=== PATIENT | female | born 1960 | race Two or more races ===

== ENCOUNTER 2020-04-15 09:10 | Outpatient (REF) | payer OTHER, SELFPAY ==
[2020-04-15 16:01] LABS: CT PCR NOT DETECTED (Not Detect.); NG PCR NOT DETECTED (Not Detect.)
[2020-04-16 12:18] LABS: BV Int Neg Control Negative (Negative); BV Int Pos Control Positive (Positive)
[2020-04-19 04:22] LABS: HPV 16 RNA NOT DETECTED (NOT DETECTED); HPV mRNA E6/E7 Detected (Not Detected)
== END 2020-04-15 09:11 | disposition home or self-care (01) ==
LOC: HO.LNP 09:10
PROVIDERS: PCP Physician Assistant; Referring Provider Physician Assistant; Visit Provider Advanced Practice Midwife
DX: Z01.419 Encounter for gynecological examination (general) (routine) without abnormal findings (principal); Z20.2 Contact with and (suspected) exposure to infections with a predominantly sexual mode of transmission; N64.52 Nipple discharge
CPT/HCPCS: 87480; 87491; 87510; 87591; 87624; 87625; 87660; 88141; 88142

== ENCOUNTER 2020-04-17 08:32 | Outpatient (REF) | payer OTHER, SELFPAY ==
[2020-04-18 08:41] LABS: HBsAGNum1 0.22 S/CO (0.00-0.99); HIV AB/AG Nonreactive (Nonreactive); HIV Num 1 0.05 S/CO (0.00-0.99); Hepatitis B Surface Antigen Negative (Negative)
[2020-04-18 09:01] LABS: ~HepC Num1 0.06 S/CO (0.00-0.79); ~Hepatitis C Antibody Nonreactive (Nonreactive)
[2020-04-18 09:39] LABS: Syphilis Screen Nonreactive (Nonreactive)
== END 2020-04-17 08:33 | disposition home or self-care (01) ==
LOC: HO.LAB 08:32
PROVIDERS: PCP Physician Assistant; Visit Provider Advanced Practice Midwife
DX: Z20.2 Contact with and (suspected) exposure to infections with a predominantly sexual mode of transmission (principal)
CPT/HCPCS: 86780; 86803; 87340; 87389

== ENCOUNTER → 2020-04-29 10:52 | Outpatient (BNVA) | payer OTHER, SELFPAY | PROVIDERS: PCP Internal Medicine; Referring Provider Internal Medicine; Visit Provider Advanced Practice Midwife | DX: Z76.89 Persons encountering health services in other specified circumstances (principal) ==

== ENCOUNTER 2020-05-23 08:06 | Outpatient (REF) | payer OTHER, SELFPAY ==
--- NOTE | 2020-05-23 08:10 | MM_ITS ---
EXAMINATION: MM SCREENING DIGITAL BREAST TOMOSYNTHESIS, BILATERAL CLINICAL INFORMATION: Screening. Asymptomatic. The lifetime risk of breast cancer based on the Tyrer-Cuzick Model is 5%. COMPARISON: Mammography: 06/16/2018, 05/05/2017 02/25/2017, 02/27/2016 TECHNIQUE: Digital breast tomosynthesis is performed in both the craniocaudal and mediolateral oblique views along with computer-aided detection (CAD). Synthesized 2D images are generated from the tomosynthesis. Additional right MLO view is provided. FINDINGS: There are scattered areas of fibroglandular density (ACR BI-RADS breast composition Category b). There are no significant masses, abnormal calcifications, or other abnormalities. There are 2 intramammary nodes posterior upper outer left breast again seen. Right breast again has dermal lesion overlying the posterior medial breast. There is a stable asymmetric density mid outer right breast on similar to prior studies. No developing density. MM/MM tomosynthesis screening BI IMPRESSION: No significant changes from prior studies. ASSESSMENT: BI-RADS 2: Benign RECOMMENDATION: Routine annual mammography screening. This patient's information was entered into a reminder system with a target due date for their next mammogram.
== END 2020-05-23 08:07 | disposition home or self-care (01) ==
LOC: HO.MAMMO 08:06
PROVIDERS: PCP Physician Assistant; Visit Provider Advanced Practice Midwife
DX: Z12.31 Encounter for screening mammogram for malignant neoplasm of breast (principal)
CPT/HCPCS: 77063; 77067

== ENCOUNTER 2020-09-26 06:59 | Day surgery (SDC) | payer OTHER, SELFPAY ==
[2020-09-22 13:33] VITALS: BMI 33.9
--- NOTE | 2020-09-25 09:50 | HO.ANESPROP2 ---
Documented by User: Mere Richard 09/25/20 10:03 HPI - Anesthesia Eval Consult details Narrative: 60yo F for Colonoscopy PMFSH Active Problems Active Problems: All Active Problems (Updated 06/23/20 @ 14:34 by Ernesto Monreal PA-C) Well woman exam with routine gynecological exam (Acute) Potential exposure to STD (Acute) Nipple discharge in female (Acute) HPV test positive (Acute) HTN (hypertension) (Acute) HLD (hyperlipidemia) (Acute) Past Medical History Medical History History of atrial fibrillation History of fibromyalgia Hx of essential hypertension Hx of hyperlipidemia Hx of obesity Hx of sleep apnea Family History Family History Father Hx of lymphoma Mother Diabetes mellitus HTN (hypertension) Osteoporosis High cholesterol Brother Stroke Diabetes mellitus Heart valve problem Surgical History Surgical History H/O colonoscopy History of endometrial ablation Hx of cholecystectomy Hx of eye surgery Hx of knee surgery Hx of tubal ligation Social History Social History Are you a primary hemodialysis patient care specialist to a significant other at home: Yes (MOM) Do you presently have visiting nurse or other home services: No Alcohol intake: never Smoking Status: Never smoker Second Hand Smoke Exposure: No Use of substances other than those prescribed or required for medical reasons: Yes Have you been hit, kicked, punched, or otherwise hurt by someone within the past year? If so, by whom?: No Advance Directives: No Advance Directives Information Provided: Yes Recently lost weight without trying: No Meds Allergies Allergy/AdvReac Type Severity Reaction Status Date / Time No Known Allergies Allergy Verified 06/23/20 14:25 [No Known Allergies*] Home Medications Medication Instructions Recorded Confirmed Last Taken Type multivitamin 1 tab PO DAILY 09/22/20 09/22/20 Unknown History omega-3 fatty acids-vitamin E 1 cap PO DAILY 09/22/20 09/22/20 Unknown History [Fish Oil] aspirin [Aspir-81] 81 mg PO DAILY 09/25/20 09/25/20 Unknown History Exam Exam Date and Time: September 25, 2020 0950 Height,Weight and Vital Signs: Height 4 ft 11 in Weight 76.204 kg Narrative Narrative: EKG 2019: NSR @ 65 Assessment and Plan Assessment Anesthesia Assessment: Chart Reviewed Documented by User: Mame Bales 09/26/20 07:59 PMFSH Past Medical History Medical History History of atrial fibrillation History of fibromyalgia Hx of essential hypertension Hx of hyperlipidemia Hx of obesity Hx of sleep apnea Family History Family History Father Hx of lymphoma Mother Diabetes mellitus HTN (hypertension) Osteoporosis High cholesterol Brother Stroke Diabetes mellitus Heart valve problem Surgical History Surgical History H/O colonoscopy History of endometrial ablation Hx of cholecystectomy Hx of eye surgery Hx of knee surgery Hx of tubal ligation Social History Social History Are you a primary hemodialysis patient care specialist to a significant other at home: Yes (MOM) Do you presently have visiting nurse or other home services: No Alcohol intake: never Smoking Status: Never smoker Second Hand Smoke Exposure: No Use of substances other than those prescribed or required for medical reasons: Yes Have you been hit, kicked, punched, or otherwise hurt by someone within the past year? If so, by whom?: No Advance Directives: No Advance Directives Information Provided: Yes Recently lost weight without trying: No Meds Allergies Allergy/AdvReac Type Severity Reaction Status Date / Time No Known Allergies Allergy Verified 06/23/20 14:25 [No Known Allergies*] Home Medications Medication Instructions Recorded Confirmed Last Taken Type multivitamin 1 tab PO DAILY 09/22/20 09/22/20 Unknown History omega-3 fatty acids-vitamin E 1 cap PO DAILY 09/22/20 09/22/20 Unknown History [Fish Oil] aspirin [Aspir-81] 81 mg PO DAILY 09/25/20 09/25/20 Unknown History Exam Airway Mallampati Class: III TM Dist: >3cm Neck ROM: Full Loose/Missing/Broken Teeth: No Heart: RRR Lungs: CTA Assessment and Plan Assessment Anesthesia Assessment: Anesthesia Plan Discussed and Chart Reviewed Final Anesthetic Review NPO: Yes ASA Class: III Final Preanesthetic Review: Meds/Allgs Chart Reviewed, Consent Obtained/Reviewed and Anes Risks/Benef Reviewed Patient Risk: Intermediate Procedure Risk: Low Anesthetic Plan Anesthetic Plan: MAC: Disposition: Standard PACU
[2020-09-26 07:19] VITALS: BP 130/72; PULSE 75; RESP 18; TEMP 36.3; O2SAT 99
[2020-09-26] MEDS: Lactated Ringers 1,000 ML 50 ML IV (08:17)
--- NOTE | 2020-09-26 08:19 | MHC.SHP ---
Pre-Procedural Eval Section A The patient is an INPATIENT: No Changes since office visit: No Cold of Flu in the past 2 weeks, No New Medical Problems, No Changes in Medication and No Patient answered all questions The History & Physical has been completed within 30 days and I have reviewed it.: Yes Section B Chief Complaint: screening Allergies: Allergies Allergy/AdvReac Type Severity Reaction Status Date / Time No Known Allergies Allergy Verified 06/23/20 14:25 [No Known Allergies*] Plan I have reviewed the history and physical and performed a pertinent physical examination on my patient. No changes have occurred unless specified.
[2020-09-26 08:43] VITALS: BP 116/65; PULSE 76; RESP 20; TEMP 36.8; O2SAT 97
[2020-09-26 08:57] VITALS: BP 129/69; PULSE 62; RESP 18; TEMP 36.8; O2SAT 97
--- NOTE | 2020-09-26 09:01 | PM.OP ---
Brief Operative Note Date of Service: 09/26/20 Surgeon: Reggie Torres Estimated blood loss (mL): 0
--- NOTE | 2020-09-26 09:50 | OP_ITS ---
SURGEON: Reggie Torres MD INDICATIONS: Colon cancer screening. PREOPERATIVE DIAGNOSIS: POSTOPERATIVE DIAGNOSIS: PROCEDURE PERFORMED: Colonoscopy to the terminal ileum. ESTIMATED BLOOD LOSS: COMPLICATIONS: ANESTHESIA: ASSISTANTS: SPECIMENS: MEDICATIONS: Monitored anesthesia care. DESCRIPTION OF PROCEDURE: History and physical performed. The risks and benefits of the procedure were explained to the patient. Informed consent was obtained. The patient was placed in the left lateral decubitus position. A digital rectal exam was performed and was found to be normal. The Olympus pediatric video colonoscope was introduced into the rectum and advanced to the cecum without difficulty. The cecum was identified by transillumination, palpation, and identification of ileocecal valve. Examination was performed and the scope was removed. She tolerated the procedure well and was taken to recovery area in stable condition. FINDINGS: The terminal ileum was normal. The visualized colonic mucosa was normal. The quality of the prep was good. No polyps were identified. There was a single diverticulum identified in the cecum. Retroflexed examination showed small internal hemorrhoids. IMPRESSION: Normal colonoscopy. RECOMMENDATIONS: 1. Follow up as needed. 2. Repeat colonoscopy is recommended in 10 years for average risk individuals. MD JENNI Desir/ARGELIA / [id number]
== END 2020-09-26 09:36 | disposition home or self-care (01) ==
PROVIDERS: PCP Physician Assistant; Visit Provider Internal Medicine Gastroenterology
PROC: 0DJD8ZZ Inspection of Lower Intestinal Tract, Via Natural or Artificial Opening Endoscopic (ICD-10-PCS; CPT 45378; principal; 2020-09-26 08:10)
DX: Z12.11 Encounter for screening for malignant neoplasm of colon (principal); Z83.71 Family history of colonic polyps; K57.30 Diverticulosis of large intestine without perforation or abscess without bleeding; K64.8 Other hemorrhoids; I48.91 Unspecified atrial fibrillation; I10 Essential (primary) hypertension; Z79.82 Long term (current) use of aspirin; Z79.899 Other long term (current) drug therapy; Z90.49 Acquired absence of other specified parts of digestive tract
CPT/HCPCS: 45378

== ENCOUNTER 2020-11-15 08:00 | Outpatient (REF) | payer OTHER, SELFPAY ==
[2020-11-15 08:37] LABS: Estimated Average Glucose 126 mg/dL
[2020-11-15 08:53] LABS: Alanine Aminotransferase 26 U/L (0-31); Albumin Level 4.4 g/dL (3.5-5.0); Alkaline Phosphatase 135 U/L (39-117); Anion Gap 13 (12-20); Aspartate Amino Transferase 14 U/L (5-31); Bilirubin Total 0.3 mg/dL (0.0-1.0); Blood Urea Nitrogen 13 mg/dL (9-16); Calcium 9.1 mg/dL (8.4-10.2); Carbon Dioxide 27 mmol/L (22-29); Chloride 106 mmol/L (96-108); Cholesterol 211 mg/dL; Estimated Glomerular Filt Rate > 60; Glucose Fasting 107 mg/dL (60-99); HDL Cholesterol 42 mg/dL; LDL Cholesterol Calculated 149 mg/dl; Potassium 4.6 mmol/L (3.3-5.1); Sodium 141 mmol/L (135-145); Total Protein 7.1 g/dL (6.5-8.0); Triglycerides 100 mg/dL
[2020-11-15 09:00] LABS: Creatinine Urine 118.39 mg/dL; Microalbum/Creatinine Ratio Ur 7.6 ug/mg cr
[2020-11-15 09:06] LABS: Hematocrit 38.1 % (37-47); Hemoglobin 12.2 g/dl (12.0-16.0); Mean Corpuscular Hemoglobin 30.3 pg (27.0-33.0); Mean Corpuscular Volume 94.5 fL (80-98); Mean Platelet Volume 11.3 fL (9.4-12.3); Platelet Count 235 X10*3/uL (160-400); Red Blood Count 4.03 X10*6/uL (4.20-5.50); Red Cell Distribution Width 13.2 % (11.0-16.0); White Blood Count 7.3 X10*3/uL (4.8-10.8)
[2020-11-15 09:14] LABS: TSH reflex Free T4 0.83 uIU/mL (0.32-4.0)
== END 2020-11-15 08:01 | disposition home or self-care (01) ==
LOC: HO.LAB 08:00
PROVIDERS: PCP Physician Assistant; Visit Provider Physician Assistant
DX: I10 Essential (primary) hypertension (principal); E78.2 Mixed hyperlipidemia
CPT/HCPCS: 36415; 80053; 80061; 82043; 83036; 84443; 85027

== ENCOUNTER 2021-05-19 07:39 | Outpatient (REF) | payer OTHER, SELFPAY ==
[2021-05-19 08:13] LABS: Hemoglobin 12.9 g/dl (12.0-16.0); Mean Corpuscular HGB Conc 33.1 g/dl (31.0-35.0); Mean Corpuscular Hemoglobin 30.3 pg (27.0-33.0); Mean Corpuscular Volume 91.5 fL (80.0-98.0); Mean Platelet Volume 11.4 fL (9.4-12.3); Platelet Count 227 X10*3/uL (160-400); Red Blood Count 4.26 X10*6/uL (4.20-5.50); Red Cell Distribution Width 13.2 % (11.0-16.0); White Blood Count 7.2 X10*3/uL (4.8-10.8)
[2021-05-19 08:22] LABS: Estimated Average Glucose 128 mg/dL; Hemoglobin A1c % 6.1 %
[2021-05-19 09:05] LABS: Alanine Aminotransferase 17 U/L (0-31); Albumin Level 4.3 g/dL (3.5-5.0); Alkaline Phosphatase 123 U/L (39-117); Anion Gap 14 (12-20); Aspartate Amino Transferase 12 U/L (5-31); Bilirubin Total 0.2 mg/dL (0.0-1.0); Blood Urea Nitrogen 13 mg/dL (9-16); Calcium 9.2 mg/dL (8.4-10.2); Carbon Dioxide 25 mmol/L (22-29); Chloride 107 mmol/L (96-108); Cholesterol 217 mg/dL; Estimated Glomerular Filt Rate > 60; Glucose Fasting 114 mg/dL (60-99); HDL Cholesterol 42 mg/dL; LDL Cholesterol Calculated 151 mg/dl; Potassium 4.6 mmol/L (3.3-5.1); Sodium 141 mmol/L (135-145); Total Protein 7.1 g/dL (6.5-8.0); Triglycerides 122 mg/dL
[2021-05-19 09:27] LABS: TSH reflex Free T4 1.51 uIU/mL (0.32-4.0)
== END 2021-05-19 07:40 | disposition home or self-care (01) ==
LOC: HO.LAB 07:39
PROVIDERS: PCP Physician Assistant; Visit Provider Physician Assistant
DX: I10 Essential (primary) hypertension (principal); R73.09 Other abnormal glucose; E78.2 Mixed hyperlipidemia
CPT/HCPCS: 36415; 80053; 80061; 83036; 84443; 85027

== ENCOUNTER 2021-06-02 10:57 | Outpatient (REF) | payer OTHER, SELFPAY ==
--- NOTE | ~2021-06-02 | MM_ITS ---
EXAMINATION: MM SCREENING DIGITAL BREAST TOMOSYNTHESIS, BILATERAL CLINICAL INFORMATION: Screening. Asymptomatic. The lifetime risk of breast cancer based on the Tyrer-Cuzick Model is 4.4%. COMPARISON: Mammography: May 23, 2020 and studies dating back to January 24, 2013 TECHNIQUE: Digital breast tomosynthesis is performed in both the craniocaudal and mediolateral oblique views along with computer-aided detection (CAD). Synthesized 2D images are generated from the tomosynthesis. Additional left exaggerated craniocaudal view performed. FINDINGS: There are scattered areas of fibroglandular density (ACR BI-RADS breast composition Category b). There are no significant masses, abnormal calcifications, or other abnormalities. MM/MM tomosynthesis screening BI IMPRESSION: There are no significant changes from prior study. ASSESSMENT: BI-RADS 1: Negative RECOMMENDATION: Routine annual mammography screening. This patient's information was entered into a reminder system with a target due date for their next mammogram.
== END 2021-06-02 10:58 | disposition home or self-care (01) ==
LOC: HO.MAMMO 10:57
PROVIDERS: PCP Physician Assistant; Visit Provider Physician Assistant
DX: Z12.31 Encounter for screening mammogram for malignant neoplasm of breast (principal)
CPT/HCPCS: 77063; 77067

== ENCOUNTER 2021-06-10 13:39 | Outpatient (REF) | payer OTHER, SELFPAY ==
--- NOTE | ~2021-06-10 | US_ITS ---
EXAMINATION: US PELVIS CLINICAL INFORMATION: Intermittent pelvic pain rule out fibroids. Previous endometrial ablation. COMPARISON: None TECHNIQUE: Ultrasound of the pelvis is performed using both transabdominal and transvaginal transducers along with Doppler. Transvaginal imaging is performed due to inadequate visualization transabdominally. FINDINGS: UTERUS: The uterus is anteverted, anteflexed and measures 6.5 x 2.8 x 4.2 cm. The endometrial wall is not visualized. The uterus is smooth in contour and has normal myometrial echogenicity. There is a hypoechoic nodule in upper posterior body of uterus measuring 1.1 x 0.7 x 1.3 cm. No additional lesions seen. ADNEXA: Both ovaries are visualized. There is normal color flow to the adnexa. There is no ovarian torsion. There is no pelvic ascites or fluid collection. There are a few scattered echogenic calcifications. Right ovary measures 2.0 x 1 1.2 x 2.1 cm and volume 2.7 mL. Left ovary measures 2.2 x 1.3 x 1.8 cm and volume 2.6 mL. There is trace free fluid in the endometrial cavity. US/US pelvic and transvaginal IMPRESSION: Small uterine fibroid. Minimal endometrial canal fluid. Punctate calcifications both ovaries.
== END 2021-06-10 13:40 | disposition home or self-care (01) ==
LOC: HO.US 13:39
PROVIDERS: PCP Physician Assistant; Visit Provider Physician Assistant
DX: R10.2 Pelvic and perineal pain (principal)
CPT/HCPCS: 76830; 76856

== ENCOUNTER 2021-09-24 12:29 | Outpatient (REF) | payer OTHER, SELFPAY ==
[2021-09-26 23:46] LABS: HPV 16 RNA NOT DETECTED (NOT DETECTED); HPV mRNA E6/E7 rflx Detected (Not Detected)
== END 2021-09-24 12:30 | disposition home or self-care (01) ==
LOC: HO.LAB 12:29
PROVIDERS: Visit Provider Advanced Practice Midwife
DX: Z01.419 Encounter for gynecological examination (general) (routine) without abnormal findings (principal); Z11.51 Encounter for screening for human papillomavirus (HPV)
CPT/HCPCS: 87624; 87625; 88142

== ENCOUNTER 2021-11-12 11:23 | Outpatient (REF) | payer OTHER, SELFPAY ==
[2021-11-12 12:31] LABS: Influenza A PCR POSITIVE (Negative); Influenza B PCR NEGATIVE (Negative); Resp Syncy Virus RNA Qual PCR NEGATIVE (Negative); SARS COV2 PCR INHOUSE NEGATIVE (Negative)
== END 2021-11-12 11:24 | disposition home or self-care (01) ==
LOC: HO.LNP 11:23
PROVIDERS: Visit Provider Internal Medicine
DX: R05.9 Cough, unspecified (principal); R50.9 Fever, unspecified; R53.83 Other fatigue; M79.10 Myalgia, unspecified site; Z20.822 Contact with and (suspected) exposure to COVID-19
CPT/HCPCS: 0241U

== ENCOUNTER 2021-11-21 08:01 | Outpatient (REF) | payer OTHER, SELFPAY ==
[2021-11-21 09:06] LABS: Estimated Average Glucose 128 mg/dL; Hemoglobin A1c % 6.1 %
[2021-11-21 09:11] LABS: Alanine Aminotransferase 33 U/L (0-31); Albumin Level 4.2 g/dL (3.5-5.0); Alkaline Phosphatase 120 U/L (39-117); Anion Gap 9 (12-20); Aspartate Amino Transferase 14 U/L (5-31); Bilirubin Total 0.3 mg/dL (0.0-1.0); Blood Urea Nitrogen 16 mg/dL (9-16); Calcium 9.4 mg/dL (8.4-10.2); Carbon Dioxide 29 mmol/L (22-29); Chloride 107 mmol/L (96-108); Cholesterol 228 mg/dL; Estimated Glomerular Filt Rate > 60; Glucose Fasting 112 mg/dL (60-99); HDL Cholesterol 41 mg/dL; LDL Cholesterol Calculated 159 mg/dl; Potassium 4.8 mmol/L (3.3-5.1); Sodium 140 mmol/L (135-145); Total Protein 7.2 g/dL (6.5-8.0); Triglycerides 142 mg/dL
[2021-11-21 09:13] LABS: Creatinine Urine 103.31 mg/dL; Microalbumin Urine < 5.0 mg/L
== END 2021-11-21 08:02 | disposition home or self-care (01) ==
LOC: HO.LAB 08:01
PROVIDERS: PCP Physician Assistant; Visit Provider Physician Assistant
DX: R73.09 Other abnormal glucose (principal); I10 Essential (primary) hypertension; E78.2 Mixed hyperlipidemia
CPT/HCPCS: 36415; 80053; 80061; 82043; 83036

== ENCOUNTER 2021-12-14 12:36 | Outpatient (REF) | payer OTHER, SELFPAY | END 2021-12-14 12:37 | disposition home or self-care (01) | LOC: HO.LAB 12:36 | PROVIDERS: Visit Provider Obstetrics & Gynecology | DX: R87.610 Atypical squamous cells of undetermined significance on cytologic smear of cervix (ASC-US) (principal); R87.810 Cervical high risk human papillomavirus (HPV) DNA test positive | CPT/HCPCS: 57454; 88305 ==

== ENCOUNTER 2022-05-31 14:23 | Outpatient (REF) | payer OTHER, SELFPAY ==
[2022-05-31 15:03] LABS: Hematocrit 39.5 % (37.0-47.0); Hemoglobin 12.8 g/dl (12.0-16.0); Mean Corpuscular HGB Conc 32.4 g/dl (31.0-35.0); Mean Corpuscular Volume 92.5 fL (80.0-98.0); Mean Platelet Volume 11.4 fL (9.4-12.3); Platelet Count 245 X10*3/uL (160-400); Red Blood Count 4.27 X10*6/uL (4.20-5.50); White Blood Count 8.7 X10*3/uL (4.8-10.8)
[2022-05-31 16:10] LABS: Ferritin 59 ng/mL (10-250); Iron 42 mcg/dL (30-160); Percent Iron Saturation 18 % (15-50); Total Iron Binding Capacity 234 mcg/dL (228-428); Unsaturated Iron Binding 192 ug/dL
[2022-05-31 16:22] LABS: Folate 12.7 ng/mL (> or = 4.0); Vitamin B12 409 pg/mL (200-900)
== END 2022-05-31 14:24 | disposition home or self-care (01) ==
LOC: HO.LAB 14:23
PROVIDERS: Absent Provider Physician Assistant; PCP Physician Assistant; Visit Provider Nurse Practitioner Family
DX: S01.01XA Laceration without foreign body of scalp, initial encounter (principal); E53.8 Deficiency of other specified B group vitamins; D50.9 Iron deficiency anemia, unspecified; X58.XXXA Exposure to other specified factors, initial encounter; Y93.9 Activity, unspecified; Y92.9 Unspecified place or not applicable; Y99.9 Unspecified external cause status
CPT/HCPCS: 36415; 82607; 82728; 82746; 83540; 85027

== ENCOUNTER 2022-06-22 14:22 | Outpatient (REF) | payer OTHER, SELFPAY ==
--- NOTE | ~2022-06-22 | MM_ITS ---
EXAMINATION: MM SCREENING DIGITAL BREAST TOMOSYNTHESIS, BILATERAL CLINICAL INFORMATION: Screening. Asymptomatic. The lifetime risk of breast cancer based on the Tyrer-Cuzick Model is 5.8%. COMPARISON: Mammography: June 02, 2021 and studies dating back to February 27, 2016 TECHNIQUE: Digital breast tomosynthesis is performed in both the craniocaudal and mediolateral oblique views along with computer-aided detection (CAD). Synthesized 2D images are generated from the tomosynthesis. FINDINGS: There are scattered areas of fibroglandular density (ACR BI-RADS breast composition Category b). There are no significant masses, abnormal calcifications, or other abnormalities. MM/MM tomosynthesis screening BI IMPRESSION: No significant changes from prior exam. ASSESSMENT: BI-RADS 1: Negative RECOMMENDATION: Routine annual mammography screening. This patient's information was entered into a reminder system with a target due date for their next mammogram.
== END 2022-06-22 14:23 | disposition home or self-care (01) ==
LOC: HO.MAMMO 14:22
PROVIDERS: PCP Physician Assistant; Visit Provider Physician Assistant
DX: Z12.31 Encounter for screening mammogram for malignant neoplasm of breast (principal)
CPT/HCPCS: 77063; 77067

== ENCOUNTER 2022-08-14 07:58 | Outpatient (REF) | payer OTHER, SELFPAY ==
[2022-08-14 08:39] LABS: Estimated Average Glucose 126 mg/dL
== END 2022-08-14 07:59 | disposition home or self-care (01) ==
LOC: HO.LAB 07:58
PROVIDERS: PCP Physician Assistant; Visit Provider Physician Assistant
DX: R73.09 Other abnormal glucose (principal)
CPT/HCPCS: 36415; 83036

== ENCOUNTER 2022-10-14 14:09 | Outpatient (REF) | payer OTHER, SELFPAY ==
[2022-10-14 15:14] LABS: Influenza A PCR NEGATIVE (Negative); Influenza B PCR NEGATIVE (Negative); Resp Syncy Virus RNA Qual PCR NEGATIVE (Negative); SARS COV2 PCR INHOUSE POSITIVE (Negative)
== END 2022-10-14 14:10 | disposition home or self-care (01) ==
LOC: HO.LNP 14:09
PROVIDERS: Visit Provider Internal Medicine
DX: R09.89 Other specified symptoms and signs involving the circulatory and respiratory systems (principal); Z20.822 Contact with and (suspected) exposure to COVID-19
CPT/HCPCS: 0241U

== ENCOUNTER 2023-02-26 23:45 | Emergency (ER) | payer BC, SELFPAY ==
--- NOTE | 2023-02-27 | ECG_ITS ---
Test Reason : HIGH BP Blood Pressure : / mmHG Vent. Rate : 072 BPM Atrial Rate : 072 BPM P-R Int : 148 ms QRS Dur : 098 ms QT Int : 422 ms P-R-T Axes : 046 -29 036 degrees QTc Int : 462 ms Normal sinus rhythm Normal ECG When compared with ECG of 17-NOV-2018 12:26, No significant change was found Referred By: Generic ED Physician Electronically Signed By:KATERIN CRISOSTOMO
[2023-02-27 00:13] VITALS: BP 196/91; PULSE 70; RESP 18; TEMP 36.9; O2SAT 98; BMI 33.3
--- NOTE | 2023-02-27 00:56 | ED_ITS ---
HPI - General Adult General Chief complaint: General Medical Stated complaint: elevated BP Time Seen by Provider: 02/27/23 00:46 Source: patient Mode of arrival: ambulatory Limitations: no limitations History of Present Illness HPI narrative: Patient comes to the emergency room complaining of high blood pressure. Patient states that she is known to have hypertension, takes hydrochlorothiazide 12.5 mg/losartan 50 mg. Patient states she is compliant with her medication. Patient states that lately she has been going through a lot of stress, now she is taking care of her elderly mother with dementia. Patient states that earlier today she had a bit of a headache but it quickly self resolve. At this time, luis langston states that she has no headache chest pain or shortness of breath. Patient states that months ago, she was diagnosed with atrial fibrillation in [facility], started on metoprolol, run out of medications and did not have a follow-up with Cardiology. At this time, patient states that she feels well, no chest pain shortness of breath, no palpitations. Related Data Home Medications Medication Instructions Recorded Confirmed multivitamin 1 tab PO DAILY 09/22/20 10/14/22 aspirin 81 mg tablet,delayed 81 mg PO DAILY 09/24/21 10/14/22 release Previous Rx's Medication Instructions Recorded losartan 50 mg-hydrochlorothiazide 1 tab PO DAILY 90 days #90 tabs 06/02/22 12.5 mg tablet nirmatrelvir 300 mg (150 mg See Rx Instructions PO .COMPLEX 10/15/22 x2)-ritonavir 100 mg tablet,dose #30 tabs pack amlodipine 5 mg tablet 5 mg PO DAILY #30 tabs 02/27/23 Allergies Allergy/AdvReac Type Severity Reaction Status Date / Time lisinopril AdvReac Intermediate leg cramps Verified 02/27/23 00:16 Review of Systems Review of Systems: Constitutional : No Weight loss, No Fever, No Chills, No Night Sweats, No Fatigue, No Malaise ENT/Mouth : No Hearing loss, No Ear Pain, No Nasal Congestion, No Sinus Pain, No Hoarseness, No sore throat, No Rhinorrhea, No Swallowing Difficulty Eyes: No Eye Pain, No Swelling, No Redness, No Foreign Body, No Discharge, No Vision Changes Cardiovascular : No Chest Pain, No SOB, No Dyspnea on Exertion, No Orthopnea, No Edema, had palpitations earlier today which self-resolved Respiratory : No Cough, No Sputum, No Wheezing, No Smoke Exposure, No Dyspnea Gastrointestinal : No Nausea, No Vomiting, No Diarrhea, No Constipation, No a bdominal Pain, No Hematochezia, No Melena Genitourinary : no irregular bleeding, No Dysuria, No Urinary Frequency, No Hematuria, No Urinary Incontinence, No Urgency, No Flank Pain, No Urinary Flow Changes, No Hesitancy Musculoskeletal : No joint pain, No Myalgias, No Joint Swelling Skin : No Skin Lesions, No rash Neuro : No Weakness, No Numbness, No Paresthesias, No Loss of Consciousness, No Dizziness, headache which self-resolved Psych : No Anxiety/Panic, No Depression, No SI/HI/AH/VH, No Social Issues, Heme/Lymph: No Bruising, No Bleeding,No Lymphadenopathy Endocrine : No Polyuria, No Polydipsia, No Temperature Intolerance PMFSH Past Medical History Medical History History of atrial fibrillation History of fibromyalgia Hx of essential hypertension Hx of hyperlipidemia Hx of obesity Hx of sleep apnea Surgical History H/O colonoscopy History of endometrial ablation Hx of cholecystectomy Hx of eye surgery Hx of knee surgery Hx of tubal ligation Family History Family History Father Hx of lymphoma Mother Diabetes mellitus HTN (hypertension) Osteoporosis High cholesterol Brother Stroke Diabetes mellitus Heart valve problem Social History Social History Housing: House Are you a primary patient centered care specialist to a significant other at home: Yes (MOM) Do you presently have visiting nurse or other home services: No Alcohol intake: never Patient Tobacco Use Status: Never used Tobacco Smoked in Last 30 Days: No e-Cigarette/Vaping Use: Never Used Second Hand Smoke Exposure: No Use of substances other than those prescribed or required for medical reasons: No Advance Directives: No Advance Directives Information Provided: Yes Patient : No service: No Current occupational status: employed Current occupation: [employer] Sexual orientation: Straight/Heterosexual Gender identity: Female Cognitive needs: No Hearing needs: No Vision needs: Yes Physical Exam ED Vital Signs: Vital Signs - 24 hr 02/27/23 00:13 02/27/23 01:04 Temperature 98.4 F Pulse Rate 70 62 Respiratory Rate 18 18 Blood Pressure 196/91 H 174/86 H Pulse Oximetry 98 98 Oxygen Delivery Method Room Air BMI result Body Mass Index 33.3 Const Other: Appearance: Alert. Oriented X3. No acute distress. Eyes: Pupils equal, round and reactive to light. ENT: Pharynx normal. Neck: Normal inspection. Neck supple. No lymph nodes noted. No crepitus CVS: Normal heart rate and rhythm. Pulses normal. Normal S1 and S2 Respiratory: No respiratory distress. Breath sounds normal. No Wheezing. No rales Abdomen: Soft and nontender. No rigidity. No distention. Skin: Skin warm and dry. Normal skin color. Normal skin turgor. Extremities: No lower extremity edema. No Lacerations. No Rash Neuro: Oriented X 3. No motor deficit. No sensory deficit. Moving all extremities. No slurred speech. CN 2 through 12 grossly intact Psych: calm, cooperative, normal affect Course Course Course Narrative: -all patient's labs are pending -patient's blood pressure 196/91 on arrival, on recheck 176 systolic. -at this time, patient has no chest pain or shortness of breath, no palpitations or headache. -patient being given 10 mg of p.o. amlodipine. Medications Administered Discontinued Medications Generic Name Dose Route Start Last Admin Trade Name Freq PRN Reason Stop Dose Admin Amlodipine Besylate 10 mg 02/27/23 00:55 02/27/23 01:03 Amlodipine Besylate 10 Mg Tablet PO 02/27/23 00:56 10 mg ONCE ONE Administration Protocol Medical Decision Making Medical Decision Making [facility] Narrative: -my interpretation of EKG: Sinus rhythm, heart rate 72, no ST segment depression elevation, no T-wave inversions, QTC 462 -my interpretation of labs: Hematology and chemistry unremarkable -patient received 10 mg of p.o. amlodipine. Differential Diagnosis Differential Diagnoses: The differential diagnosis associated with the presentation includes (Chronic hypertension, hypertensive urgency, hypertensive emergency) Admission/Observation Consideration of admission/observation: Escalation of care including admission/observation considered (Patient came in with a high blood pressure, admission was considered.) Lab Data [facility] Lab Attestation statement: I reviewed the patient's lab results. 02/27/23 01:05 02/27/23 01:05 Labs: Lab Results 02/27/23 02/27/23 Range/Units 01:05 01:05 WBC 8.3 (4.8-10.8) X10*3/uL RBC 3.99 L (4.20-5.50) X10*6/uL Hgb 11.9 L (12.0-16.0) g/dl Hct 36.1 L (37.0-47.0) % MCV 90.5 (80.0-98.0) fL MCH 29.8 (27.0-33.0) pg MCHC 33.0 (31.0-35.0) g/dl RDW 13.2 (11.0-16.0) % Plt Count 214 (160-400) X10*3/uL MPV 11.3 (9.4-12.3) fL Immature Gran % (Auto) 0.1 (0.0-0.4) % Neut % (Auto) 65.5 (45-73) % Lymph % (Auto) 27.7 (20-40) % [place] % (Auto) 4.9 (2-11) % Eos % (Auto) 1.4 (0-4) % Baso % (Auto) 0.4 (0-2) % Lymph # (Auto) 2.3 (1.2-4.9) X10*3/uL [place] # (Auto) 0.4 (0.1-1.2) X10*3/uL Eos # (Auto) 0.1 (0.0-0.4) X10*3/uL Baso # (Auto) 0.0 (0.0-0.2) X10*3/uL Abs Immat Gran (auto) 0.01 (0.00-0.03) X10*3/uL Absolute Neuts (auto) 5.4 (2.0-8.3) x10*3/uL Absolute Nucleated RBC 0.000 (0.0-0.012) X10*3/uL Nucleated RBC % (auto) 0.0 (0.0-0.2) /100WBC Sodium 142 (135-145) mmol/L Potassium 3.6 D (3.3-5.1) mmol/L Chloride 107 (96-108) mmol/L Carbon Dioxide 23 (22-29) mmol/L Anion Gap 16 (12-20) BUN 18 H (9-16) mg/dL Creatinine 0.82 (0.5-1.4) mg/dL Estim Creat Clear Calc 61.9 Estimated GFR > 60 Random Glucose 115 (60-115) mg/dL Calcium 9.7 (8.4-10.2) mg/dL Critical Care Time Critical Care Time Critical Care Time: Yes Total Critical Care Time: 60 Attestation: I have personally provided critical care time. Time includes review of lab data, radiology results, discussion with consultants, and monitoring for potential decompensation. Intervention performed as documented. Discharge Plan Discharge Clinical Impression: HTN (hypertension) Patient Disposition: Home, Self-Care Instructions: Hypertension (ED) Additional Instructions: Continue taking your current medication, add amlodipine your current meds. Can be taking at the same time. Please follow-up with your primary care physician tomorrow. If you have any worsening or new symptoms, please return to the emergency room or call 911 Prescriptions: New amlodipine 5 mg tablet 5 mg PO DAILY Qty: 30 0RF No Action nirmatrelvir-ritonavir 300 mg (150 mg x 2)-100 mg tablets,dose pack See Rx Instructions PO .COMPLEX Qty: 30 0RF Rx Instructions: take TWO 150 mg tablets of nirmatrelvir with ONE 100 mg tablet of ritonavir twice daily for 5 days PO multivitamin Tablet 1 tab PO DAILY losartan-hydrochlorothiazide 50-12.5 mg tablet 1 tab PO DAILY 90 Days Qty: 90 1RF aspirin 81 mg tablet,delayed release (DR/EC) 81 mg PO DAILY
[2023-02-27] MEDS: amLODIPine Besylate 10 MG TABLET PO (01:03)
[2023-02-27 01:04] VITALS: BP 174/86; PULSE 62; RESP 18; O2SAT 98
[2023-02-27 01:10] LABS: MANUAL DIFF FLAG NO
[2023-02-27 01:11] LABS: Basophils Percent Auto 0.4 % (0-2); Eosinophils Absolute Auto 0.1 X10*3/uL (0.0-0.4); Eosinophils Percent Auto 1.4 % (0-4); Hematocrit 36.1 % (37.0-47.0); Hemoglobin 11.9 g/dl (12.0-16.0); Imm Gran Abs Auto 0.01 X10*3/uL (0.00-0.03); Imm Gran Pct Auto 0.1 % (0.0-0.4); Lymphocytes Absolute Auto 2.3 X10*3/uL (1.2-4.9); Lymphocytes Percent Auto 27.7 % (20-40); Mean Corpuscular Hemoglobin 29.8 pg (27.0-33.0); Mean Corpuscular Volume 90.5 fL (80.0-98.0); Mean Platelet Volume 11.3 fL (9.4-12.3); Monocytes Absolute Auto 0.4 X10*3/uL (0.1-1.2); Monocytes Percent Auto 4.9 % (2-11); Neutrophils Absolute Auto 5.4 x10*3/uL (2.0-8.3); Neutrophils Percent Auto 65.5 % (45-73); Platelet Count 214 X10*3/uL (160-400); Red Blood Count 3.99 X10*6/uL (4.20-5.50); Red Cell Distribution Width 13.2 % (11.0-16.0); White Blood Count 8.3 X10*3/uL (4.8-10.8)
[2023-02-27 01:31] LABS: Anion Gap 16 (12-20); Blood Urea Nitrogen 18 mg/dL (9-16); Calcium 9.7 mg/dL (8.4-10.2); Carbon Dioxide 23 mmol/L (22-29); Chloride 107 mmol/L (96-108); Creatinine Clr Calc Pharmacy 61.9; Estimated Glomerular Filt Rate > 60; Glucose Random 115 mg/dL (60-115); Potassium 3.6 mmol/L (3.3-5.1); Sodium 142 mmol/L (135-145)
[2023-02-27 01:37] LABS: B Type Natriuretic Peptide < 10 pg/mL (<100)
[2023-02-27 01:38] LABS: Troponin-I High Sensitivity < 2.7 ng/L (<3.5-17.0)
[2023-02-27 01:48] VITALS: BP 157/86
== END 2023-02-27 01:49 | disposition home or self-care (01) ==
PROVIDERS: Emergency Provider Emergency Medicine; PCP Physician Assistant
DX: I10 Essential (primary) hypertension (principal); R51.9 Headache, unspecified; I48.91 Unspecified atrial fibrillation; E78.5 Hyperlipidemia, unspecified
CPT/HCPCS: 36415; 80048; 83880; 84484; 85025; 93005; 99284

== ENCOUNTER 2023-05-03 08:12 | Outpatient (AMB) | payer BC, SELFPAY ==
[2023-05-03 08:30] VITALS: BP 146/80; PULSE 71; O2SAT 97; BMI 32.3
--- NOTE | 2023-05-03 08:30 | MHC.PC.OV ---
Vital Signs 05/03/23 08:30 05/03/23 08:44 Height 4 ft 11 in Weight 160 lb 0.2 oz BMI 32.3 BP 146/80 H 146/80 H Blood Pressure Location Lt brachial Lt brachial Position Sitting Sitting Pulse 71 Pulse Source Pulse Oximeter Pulse Oximetry (%) 97 Oxygen Delivery Method Room Air Intake Visit Reasons: BP F/U Head Grinder Required: No Allergies lisinopril Adverse Reaction (Intermediate, Verified 05/03/23 08:38) leg cramps Medication List - Last Reconciled 05/03/23 by JUANITA Ho amlodipine 5 mg PO DAILY aspirin 81 mg PO DAILY multivitamin 1 tab PO DAILY Tobacco use date assessed: 05/03/23 Dental Screening Dental Screen Date: 05/03/23 Did you have a dental visit in the last 12 months?: Yes Did you have a dental problem in the last 6 months where you did not have access to dental care?: No Was dental information given to patient?: Patient has dentist HPI BP F/U HPI Details Patient is a 62-year-old female who presents today to follow-up on hypertension. Patient of RAHEEM Monreal. patient reports that she took losartan-hydrochlorothiazide yesterday, she does not like have she feels on this medication, sometime ago she went to the emergency department and they give her amlodipine, patient would like to be on amlodipine instead. Reports blood pressures on losartan-hydrochlorothiazide systolic 140-159. No shortness of breath or chest pain. ON LICENSE OF [facility] Medical History Hx of obesity Hx of sleep apnea History of atrial fibrillation Hx of hyperlipidemia History of fibromyalgia Hx of essential hypertension Surgical History Hx of eye surgery H/O colonoscopy History of endometrial ablation Hx of tubal ligation Hx of cholecystectomy Hx of knee surgery Family History Father Hx of lymphoma Mother Diabetes mellitus HTN (hypertension) Osteoporosis High cholesterol Brother Stroke Diabetes mellitus Heart valve problem Social History Housing: House Are you a primary children's zoo caretaker to a significant other at home: Yes (MOM) Do you presently have visiting nurse or other home services: No Alcohol intake: never Patient Tobacco Use Status: Never used Tobacco e-Cigarette/Vaping Use: Never Used Second Hand Smoke Exposure: No service: No Current occupational status: employed Current occupation: [employer] Sexual orientation: Straight/Heterosexual Gender identity: Female Cognitive needs: No Hearing needs: No Vision needs: Yes Female Reproductive History Menstrual Age of Menarche: 12 Questionnaire Thrive Questionnaire Date Thrive assessed: 08/31/22 AUDIT C Alcohol Use Questionnaire (AUDIT-C) 1. How often do you have a drink containing alcohol?: Never 3. How often do you have six or more drinks on one occasion?: Never Total Score: 0 Score Reviewed/Action Taken: No ANIVAL-7 AMB Questionnaire ANIVAL-7 Date ANIVAL - 7 assessed: 08/31/22 Source: Developed by Drs. Sagar Pratt, Monie Lee, Nabeel Simpson and colleagues, with an educational zbigniew from [employer]. Review of Systems Const Denies body aches, Denies chills, Denies fever(s) and Denies headache(s) ENT Denies dizziness, Denies otalgia, Denies headache(s), Denies nasal discharge, Denies sinus pain and Denies sore throat Card Denies chest pain, Denies edema, Denies lightheadedness and Denies dyspnea Resp Denies dyspnea and Denies wheezing GI Denies abdominal pain Denies dysuria Musc Denies myalgias Skin/Breast Denies rash Neuro Denies dizziness and Denies headache(s) Aller/Immun Denies wheezing Physical exam (Primary Care) Vital Signs: Last Vital Signs Pulse 71 05/03/23 08:30 BP 146/80 H 05/03/23 08:30 Pulse Ox 97 05/03/23 08:30 Oxygen Delivery Method Room Air 05/03/23 08:30 BMI result Body Mass Index 32.3 Tobacco/Smoking Status: Tobacco use Status Tobacco use date assessed 05/03/23 05/03/23 08:36 Patient Tobacco Use Status Never used Tobacco 05/03/23 08:36 e-Cigarette/Vaping Use Never Used 05/03/23 08:36 Thrive Assessment: Date of Thrive Assessment Date Thrive assessed 08/31/22 05/03/23 08:36 Const General: cooperative and no acute distress Orientation/consciousness: patient oriented x3 HENMT Head: Yes normocephalic and Yes atraumatic Eyes General: appearance normal, both eyes and all related structures Neck Neck: Yes normal visual inspection and Yes full ROM Resp Effort & Inspection: normal respiratory effort and able to speak in complete sentences Auscultation: clear to auscultation bilaterally, no crackles, no rales, no rhonchi and no wheezes Cardio Rate: regular rate Rhythm: regular rhythm Heart sounds: S1 normal heart sound present, S2 normal heart sound present and no murmurs GI Auscultation: normal bowel sounds Skin General skin exam: no rashes or lesions noted Neuro General: patient oriented x3 Gait exam (Neuro): Normal gait present Extrem General: Yes full ROM and No edema Assessment and Plan Assessment & Plan (1) HTN (hypertension): Code(s): I10 - Essential (primary) hypertension Plan: Goal BP equal or less than 140/90 Blood pressure slightly elevated in the office today Start amlodipine 5 mg daily - educated about possible adverse reactions and when to notify provider Stop losartan-hydrochlorothiazide Low-sodium diet Follow-up with nurse in 2 weeks for BP recheck Plan Follow-up in 3 months Medications: Refilled amlodipine 5 mg PO DAILY 30 tabs 2RF I10 - Essential (primary) hypertension Coding Level of Care Code Est Pt Level 3 (23804) Diagnoses Essential hypertension I10
[2023-05-03 08:44] VITALS: BP 146/80
== END 2023-05-03 08:48 | disposition home or self-care (01) ==
PROVIDERS: PCP Physician Assistant; Visit Provider Nurse Practitioner Family
DX: I10 Essential (primary) hypertension (principal)
CPT/HCPCS: 99213

== ENCOUNTER 2023-06-01 11:00 | Outpatient (AMB) | payer BC, SELFPAY ==
--- NOTE | 2023-06-01 11:10 | MHC.OFFWIV ---
Intake Vital Signs 06/01/23 11:13 Height 4 ft 11 in Weight 160 lb BMI 32.3 BP 130/68 Blood Pressure Location Rt brachial Position Sitting Pulse 75 Pulse Source Pulse Oximeter Temp 96.6 F L Temp Source Temporal Artery Scan Pulse Oximetry (%) 98 Oxygen Delivery Method Room Air Intake Visit Reasons: EP stomach pain started lastnight Intake Note: Pt is here c/o abdominal pain. Pt states she is urinating a lot more than usual and also feels some pressure. Patient Tobacco Use Status: Never used Tobacco Allergies lisinopril Adverse Reaction (Intermediate, Verified 06/01/23 11:13) leg cramps HPI HPI Comments History of Present Illness Details She presents to office with lower abdominal pain and concern UTI She admits to being busy and decrease fluid hydration Strong pain last night; pelvic/lower belly Used SalonPas last night and slept well Today she is uncomfortabe Normal bowel movements; no blood or melena + urinating more frequently and smells like strong urine odor No dysuria No fever or chills Slight back ache; unsure if due to arthritis No other medicine for symptoms Denies vaginal bleeding or discharge. No concern STDs Pain level currently she said is just uncomfortable. Not as bad as last night. No medicine given PFSH Medical History Hx of obesity Hx of sleep apnea History of atrial fibrillation Hx of hyperlipidemia History of fibromyalgia Hx of essential hypertension Surgical History Hx of eye surgery H/O colonoscopy History of endometrial ablation Hx of tubal ligation Hx of cholecystectomy Hx of knee surgery Family History Father Hx of lymphoma Mother Diabetes mellitus HTN (hypertension) Osteoporosis High cholesterol Brother Stroke Diabetes mellitus Heart valve problem Social History Housing: House Are you a primary youth career specialist to a significant other at home: Yes (MOM) Do you presently have visiting nurse or other home services: No Alcohol intake: never Patient Tobacco Use Status: Never used Tobacco e-Cigarette/Vaping Use: Never Used Second Hand Smoke Exposure: No service: No Current occupational status: employed Current occupation: [employer] Sexual orientation: Straight/Heterosexual Gender identity: Female Cognitive needs: No Hearing needs: No Vision needs: Yes Female Reproductive History Menstrual Age of Menarche: 12 Review of Systems Const Denies chills, Denies fatigue, Denies fever(s) and Denies poor appetite Card Denies chest pain and Denies dyspnea Resp Denies cough and Denies dyspnea GI Denies melena, Denies hematochezia, Denies constipation, Reports GI cramping, Denies nausea and Denies vomiting Denies abnormal vaginal bleeding, Denies hematuria, Denies urinary frequency, Denies urinary incontinence, Denies urinary hesitancy, Reports urinary urgency, Denies vaginal discharge and Denies other (denies dysuria) Endo Denies fatigue Physical Exam Vital Signs: Last Vital Signs Temp 96.6 F L 06/01/23 11:13 Pulse 75 06/01/23 11:13 BP 130/68 06/01/23 11:13 Pulse Ox 98 06/01/23 11:13 Oxygen Delivery Method Room Air 06/01/23 11:13 BMI result Body Mass Index 32.3 General: Non-toxic, NAD. Speaking full sentences. Skin: Warm dry throughout Eye: EOMI Respiratory: CTA bilaterally. No wheezes, rales or rhonchi Cardiac: RRR. No murmur Abdominal: BS present. Minimal tenderness to palpation LLQ/suprapubic region. No rebound or guarding. No palpable masses. No abdominal distention or pusatile mass. No CVAT bilaterally MSK: No midline tenderness. Full ROM extremities. Neurology: A/Tracie aphasia or facial droop. Gait without abnormality Psych: Good mood and affect Results AMB Urinalysis, Automated UA Leukoctes 0 Kadeem/uL Last Edit by Gloria Evans CMA on 06/01/23 11:36 UA Nitrite Negative Last Edit by Gloria Evans CMA on 06/01/23 11:36 UA Urobilinogen 0.2 mg/dL Last Edit by Gloria Evans CMA on 06/01/23 11:36 UA Protein 0 mg/dL Last Edit by Gloria Evans CMA on 06/01/23 11:36 UA pH 7.0 Last Edit by Gloria Evans CMA on 06/01/23 11:36 UA Blood 0 Azeem/uL Last Edit by Gloria Evans CMA on 06/01/23 11:36 UA Specific [place] 1.010 Last Edit by Gloria Evans CMA on 06/01/23 11:36 UA Ketone Negative Last Edit by Gloria Evans CMA on 06/01/23 11:36 UA Bilirubin 0 mg/dL Last Edit by Gloria Evans CMA on 06/01/23 11:36 UA Glucose 0 mg/dL Last Edit by Gloria Evans CMA on 06/01/23 11:36 Assessment & Plan Assessment & Plan (1) Urinary frequency: Code(s): R35.0 - Frequency of micturition (2) Abdominal cramping: Code(s): R10.9 - Unspecified abdominal pain Plan Patient seen and evaluated. No acute abdomen on exam U/A negative for leuks, blood, protein Discussed results. We discussed differential such as inestinal inflammation, ovarian cyst etc and she will monitor symptoms [place] diet and increase fluids F/U with PCP but any worse, go to ED Patient gave verbal understanding and had no additional questions or concerns at time of discharge All questions answered Orders: Orders AMB Urinalysis Automated Today Z13.9 - Encounter for screening, unspecified Coding Level of Care Code Est Pt Level 3 (06083) Diagnoses Urinary frequency R35.0 Abdominal cramping R10.9
[2023-06-01 11:13] VITALS: BP 130/68; PULSE 75; TEMP 35.9; O2SAT 98; BMI 32.3
== END 2023-06-01 12:28 | disposition home or self-care (01) ==
PROVIDERS: PCP Physician Assistant; Visit Provider Physician Assistant
DX: R35.0 Frequency of micturition (principal); R10.9 Unspecified abdominal pain
CPT/HCPCS: 81003; 99213

== ENCOUNTER 2023-07-26 08:44 | Outpatient (AMB) | payer BC, SELFPAY ==
[2023-07-26 08:56] VITALS: BP 132/80; BMI 32.9
--- NOTE | 2023-07-26 08:56 | MHC.OFFVIS ---
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 No complaints. Last Pap/HPV was ascus/HPV positive in 09/22, colpo biopsy ECC showed FERMIN 1 Last Mammogram was BI-RADS 1 in 06/24 Last Colonoscopy was in 09/21, the recommendation was to repeat in 10 years [facility] Medical History Hx of obesity Hx of sleep apnea History of atrial fibrillation Hx of hyperlipidemia History of fibromyalgia Hx of essential hypertension Surgical History Hx of eye surgery H/O colonoscopy History of endometrial ablation Hx of tubal ligation Hx of cholecystectomy Hx of knee surgery Family History Father Hx of lymphoma Mother Diabetes mellitus HTN (hypertension) Osteoporosis High cholesterol Brother Stroke Diabetes mellitus Heart valve problem Social History Housing: House Are you a primary healthcare administrative assistant to a significant other at home: Yes (MOM) Do you presently have visiting nurse or other home services: No Alcohol intake: never Patient Tobacco Use Status: Never used Tobacco e-Cigarette/Vaping Use: Never Used Second Hand Smoke Exposure: No Patient : No service: No Current occupational status: employed Current occupation: [employer] Sexual orientation: Straight/Heterosexual Gender identity: Female Cognitive needs: No Hearing needs: No Vision needs: Yes Female Reproductive History Menstrual Age of Menarche: 12 control method: permanent sterilization Total pregnancies: 4 Full term: 2 Number of Living Children: 2 Ab induced: 1 Ab spontaneous: 1 Date of last pap smear: 09/25/21 (ASCUS +HPV) History of abnormal pap smear: Yes (2020 HPV) Review of Systems Const All systems reviewed & are unremarkable except as noted in HPI and below Card Reports as per HPI Resp Reports as per HPI GI Reports as per HPI and Reports no additional complaints Reports as per HPI Physical Exam Vital Signs: Last Vital Signs BP 132/80 07/26/23 08:56 BMI result Body Mass Index 32.9 Const General: cooperative, healthy appearing and comfortable Chest Chest palpation & inspection: normal inspection of the chest and normal palpation of entire chest wall Breast/axilla inspection: normal inspection of the breasts and normal inspection of the axillae Breast/axilla palpation: normal palpation of the breasts, normal palpation of the axillae and no axillary lymphadenopathy Resp Effort & Inspection: normal respiratory effort Auscultation: clear to auscultation bilaterally Percussion: percussion normal Cardio Palpation: normal PMI Rate: regular rate Rhythm: regular rhythm Heart sounds: no murmurs and no rubs Peripheral pulses: Peripheral pulses 2+ throughout GI Inspection: Yes normal to inspection Palpation (GI): Soft to palpation, nontender, no guarding, not rigid and No hepatosplenomegaly present Percussion: Yes normal to percussion Auscultation: normal bowel sounds Rectal Exam - Female: deferred General: Yes bladder normal to palpation External Female Exam: No lesion Speculum Exam - Vagina: normal appearance of the vagina, normal palpation, normal vaginal discharge and not erythematous Speculum Exam - Cervix: normal appearance of the cervix and normal palpation Bimanual exam- vagina & uterus: normal bimanual exam, normal palpation, uterine size normal, bladder normal to palpation, consistency normal and normal palpation Bimanual Exam- Adnexa, other: normal adnexae, no masses and no tenderness Assessment & Plan Assessment & Plan (1) Well woman exam with routine gynecological exam: Code(s): Z01.419 - Encounter for gynecological examination (general) (routine) without abnormal findings Plan: Co testing done. Counseled the patient about the recommended dietary allowance of 1200 mg of Calcium & 600 IU of vitamin D. Mammogram ordered. The patient was instructed to perform monthly self-breast exams and schedule annual exam in a year. All questions answered and the patient verbalized understanding. (2) Dysplasia of cervix, low grade (FERMIN 1): Code(s): N87.0 - Mild cervical dysplasia Plan: Co testing repeated Orders: Orders MM tomosynthesis screening BI Today Z12.31 - Encounter for screening mammogram for malignant neoplasm of breast Coding Level of Care Code Est Pt Prev Care 40-64y(38324) Diagnoses Well woman exam with routine gynecological exam Z01.419 Dysplasia of cervix, low grade (FERMIN 1) N87.0
== END 2023-07-26 09:25 | disposition home or self-care (01) ==
LOC: HO.HWS 08:44
PROVIDERS: PCP Physician Assistant; Visit Provider Obstetrics & Gynecology
DX: Z01.419 Encounter for gynecological examination (general) (routine) without abnormal findings (principal); N87.0 Mild cervical dysplasia
CPT/HCPCS: 99396

== ENCOUNTER 2023-07-26 08:44 | Outpatient (REF) | payer BC, SELFPAY ==
[2023-07-30 10:48] LABS: HPV 16 RNA NOT DETECTED (NOT DETECTED); HPV mRNA E6/E7 rflx Detected (Not Detected)
== END 2023-07-26 08:45 | disposition home or self-care (01) ==
LOC: HO.LNP 08:44
PROVIDERS: PCP Physician Assistant; Visit Provider Obstetrics & Gynecology
DX: Z01.419 Encounter for gynecological examination (general) (routine) without abnormal findings (principal); Z11.51 Encounter for screening for human papillomavirus (HPV); N87.0 Mild cervical dysplasia
CPT/HCPCS: 87624; 87625; 88142

== ENCOUNTER 2023-08-03 07:41 | Outpatient (AMB) | payer BC, SELFPAY ==
--- NOTE | 2023-08-03 07:45 | A.OFFPC_ITS ---
Vital Signs 08/03/23 07:46 Height 4 ft 11 in Weight 164 lb BMI 33.1 BP 136/70 Blood Pressure Location Lt brachial Position Sitting Pulse 72 Pulse Source Pulse Oximeter Pulse Oximetry (%) 98 Oxygen Delivery Method Room Air Intake Visit Reasons: Annual PE Allergies lisinopril Adverse Reaction (Intermediate, Verified 08/03/23 08:03) leg cramps Medication List - Last Reconciled 08/03/23 by Ernesto Monreal PA-C amlodipine 5 mg PO DAILY aspirin 81 mg PO DAILY multivitamin 1 tab PO DAILY Tobacco use date assessed: 08/03/23 Fall risk assessment: No Falls in past year Last assessed Fall Risk: 08/03/23 Dental Screening Dental Screen Date: 08/03/23 Did you have a dental visit in the last 12 months?: Yes Did you have a dental problem in the last 6 months where you did not have access to dental care?: No Was dental information given to patient?: Patient has dentist HPI Annual PE HPI Details Patient is a 63-year-old female here today for follow-up visit.? Patient's past medical history significant for obesity, hypertension, impaired glucose metabolism, history paroxysmal AFIB, hyperlipidemia. Concerns--> reports feeling daily fatigue around 2-3pm. Attributes this to her age. Would like labs to check her blood sugars. .. HTN:? Patient's blood pressure acceptable today in office. She continues on amlodipine 5 mg daily.? Otherwise denies any chest discomfort, vision issues.? She does report time to time having headaches. .. OBesity:? Unfortunately has gained some weight since last office visit attributes this to being under a bit more stress as lately. Patient has been working extensively on weight reduction as had been able to lose a few lb since last office visit.? Unfortunately BMI remains above 30.? .. AFib: Has a history AFib, chads score 1, continues on baby aspirin 81 mg. She was previously on metoprolol though had side effectd Vaccine: UTD with COVID vaccine, Needs Tdap . decline flu , needs Shingrex. Mammo: Needs up-to-date mammogram -order has been made by ASSISTANT GENERAL MANAGER ASSISTANT GENERAL MANAGER: Followed by [facility]- has HPV- UTD With PAP .. Colonoscpy: Colonoscopy done in 2020 normal repeat 10 years Laboratory Tests 05/19/21 05/19/21 11/12/21 07:54 07:54 09:02 RBC Hgb Fasting Glucose Hemoglobin A1c % Iron Cholesterol 217 LDL Cholesterol, C alc 151 Vitamin B12 Influenza Type A ( PCR) POSITIVE A 11/21/21 11/21/21 05/31/22 08:19 08:19 14:37 RBC Hgb 12.8 Fasting Glucose 112 H Hemoglobin A1c % 6.1 Iron 42 Cholesterol 228 LDL Cholesterol, C alc 159 Vitamin B12 409 Influenza Type A ( PCR) 08/14/22 02/27/23 08:12 01:05 RBC 3.99 L Hgb 11.9 L Fasting Glucose Hemoglobin A1c % 6.0 Iron Cholesterol LDL Cholesterol, C alc Vitamin B12 Influenza Type A ( PCR) PFSH Medical History Hx of obesity Hx of sleep apnea History of atrial fibrillation Hx of hyperlipidemia History of fibromyalgia Hx of essential hypertension Surgical History Hx of eye surgery H/O colonoscopy History of endometrial ablation Hx of tubal ligation Hx of cholecystectomy Hx of knee surgery Family History (Updated 08/03/23 @ 08:11 by Ernesto Monreal PA-C) Father Hx of lymphoma Mother Diabetes mellitus HTN (hypertension) Osteoporosis High cholesterol Dementia Brother Stroke Diabetes mellitus Heart valve problem Social History (Updated 08/03/23 @ 08:13 by Ernesto Monreal PA-C) Housing: House Are you a primary laboratory animal care veterinarian to a significant other at home: Yes (MOM) Do you presently have visiting nurse or other home services: No Alcohol intake: never Patient Tobacco Use Status: Never used Tobacco e-Cigarette/Vaping Use: Never Used Second Hand Smoke Exposure: No service: No Current occupational status: employed Current occupation: [employer] Sexual orientation: Straight/Heterosexual Gender identity: Female Cognitive needs: No Hearing needs: No Vision needs: Yes Female Reproductive History Menstrual Age of Menarche: 12 Questionnaire PHQ-9 Over the last 2 weeks, how often have you been bothered by any of the following problems? 1. Little interest or pleasure in doing things: not at all 2. Feeling down, depressed, or hopeless: not at all 3. Trouble falling or staying asleep, or sleeping too much: not at all 4. Feeling tired or having little energy: not at all 5. Poor appetite or overeating: not at all 6. Feeling bad about yourself - or that you are a failure or have let yourself or your family down: not at all 7. Trouble concentrating on things, such as reading the newspaper or watching television: not at all 8. Moving or speaking so slowly that other people could have noticed. Or the opposite - being so fidgety or restless that you have been moving around a lot more than usual: not at all 9. Thoughts that you would be better off or of hurting yourself in some way: not at all Total score: 0 Depression Screening Interpretation: Negative Depression Screening Done: Yes [id number] - PHQ-9 Billing: Yes Source: Developed by Drs. Sagar Pratt, Monie Lee, Nabeel Simpson and colleagues, with an educational zbigniew from [employer]. Thrive Questionnaire Date Thrive assessed: 08/03/23 I am a: Patient What is your living situation today?: I have a steady place to live Within the past 12 months, did the food you bought not last and you didn't have the money to get more?: Never true Within the past 12 months, did you worry whether your food would run out before you got money to buy more?: Never true Do you have trouble paying for medicines?: No Do you have trouble getting transportation to medical appointments?: No Do you have trouble paying your heating and electricity bill?: No Do you have trouble taking care of your child, family member or friend?: No Do you have trouble with day-to-day activities such as bathing, preparing meals, shopping, managing finances, etc.?: No Are you currently unemployed and looking for a job?: No Are you interested in more education?: No Currently or been in a relationship where the following occur: no concerns reported THRIVE Score: 0 AUDIT C Alcohol Use Questionnaire (AUDIT-C) 1. How often do you have a drink containing alcohol?: Never 3. How often do you have six or more drinks on one occasion?: Never Total Score: 0 Score Reviewed/Action Taken: No ANIVAL-7 AMB Questionnaire ANIVAL-7 Date ANIVAL - 7 assessed: 08/03/23 Feeling nervous, anxious, or on edge: 0 = Not at all Not being able to stop or control worryin = Not at all Worrying too much about different things: 0 = Not at all Trouble relaxin = Not at all Being so restless that it is hard to sit still: 0 = Not at all Becoming easily annoyed or irritable: 0 = Not at all Feeling afraid as if something awful might happen: 0 = Not at all Total ANIVAL-7 score (0-4 normal; 5-9 mild; 10-14 moderate; 15-21 severe): 0 Source: Developed by Drs. Sagar Pratt, Monie Lee, Nabeel Simpson and colleagues, with an educational zbigniew from [employer]. ANIVAL-7 Assessment Billing ANIVAL-7 Assessment Tool: ANIVAL-7 Assessment 71205 Review of Systems Const Denies body aches, Denies chills, Denies excessive sweating, Denies fatigue, Denies fever(s) and Denies headache(s) Eyes Denies blurry vision ENT Denies dysphagia, Denies vertigo, Denies dizziness, Denies headache(s), Denies hearing loss and Denies tinnitus Card Denies chest pain, Denies chest pain with activity, Denies syncope, Denies irregular heart rhythm and Denies dyspnea Resp Denies chest congestion, Denies cough, Denies hemoptysis, Denies dyspnea and Denies wheezing GI Denies abdominal pain, Denies melena, Denies hematochezia, Denies coffee ground emesis, Denies dysphagia, Denies diarrhea, Denies nausea and Denies vomiting Denies urinary frequency, Denies dysuria, Denies urinary hesitancy and Denies urinary urgency Musc Denies arthralgias, Denies limited range of motion, Denies muscle cramps and Denies muscle weakness Skin/Breast Denies rash and Denies skin ulcer Neuro Denies Abnormal speech present, Denies confusion, Denies vertigo, Denies dizziness, Denies syncope, Denies headache(s), Denies memory loss and Denies seizure-like activity Psych Denies anxiety, Denies confusion, Denies depression, Denies memory loss, Denies panic attacks and Denies paranoia Endo Denies excessive sweating, Denies fatigue, Denies flushing, Denies polydipsia and Denies polyuria Aller/Immun Denies wheezing Physical exam (Primary Care) Vital Signs: Last Vital Signs Pulse 72 08/03/23 07:46 BP 136/70 08/03/23 07:46 Pulse Ox 98 08/03/23 07:46 Oxygen Delivery Method Room Air 08/03/23 07:46 BMI result Body Mass Index 33.1 BMI Assessment/Plan discussion: High Tobacco/Smoking Status: Tobacco use Status Tobacco use date assessed 08/03/23 08/03/23 07:53 Patient Tobacco Use Status Never used Tobacco 08/03/23 08:13 e-Cigarette/Vaping Use Never Used 08/03/23 08:13 PHQ-9: PHQ-9 Score PHQ-9: Total score 0 08/03/23 08:30 Depression Screening Interpretation: Negative Thrive Assessment: Date of Thrive Assessment Date Thrive assessed 08/03/23 08/03/23 07:53 Currently or been in a relationship where the following occur: no concerns reported Const Other: Obese General: cooperative, comfortable, no acute distress, alert and awake; No confusion Orientation/consciousness: oriented to person, oriented to place, patient oriented x3 and No confusion HENMT Head: Yes normocephalic Ears: external ears normal and TM's normal bilaterally Face and sinus: No sinus tenderness Mouth: Normal oral and palatal mucosa present and tongue normal Teeth and gingiva: dentition normal and gingiva normal Throat: Yes posterior oropharynx normal, Yes tonsils normal and Yes uvula midline Eyes Conjunctivae: conjunctivae normal Sclerae: sclerae normal Pupils: Equal, round and reactive pupils present EOM: EOMs intact bilaterally Direct Ophthalmoscopy: No no photophobia Neck Neck: Yes no lymphadenopathy, No tender and Yes no JVD Thyroid: Thyroid normal Carotids: no bruits Chest Chest palpation & inspection: no tenderness Resp Effort & Inspection: normal respiratory effort, no audible wheezes, not labored and no stridor Auscultation: no crackles, no rales, no rhonchi and no wheezes Cardio Jugular venous distension: no JVD Rate: regular rate, not bradycardic and not tachycardic Rhythm: regular rhythm Bruits: no carotid bruits Peripheral pulses: Peripheral pulses 2+ throughout GI Inspection: Yes normal to inspection, No abdominal wall ecchymosis and No visible herniation Palpation (GI): Soft to palpation, nontender, no guarding, not rigid and No hepa tosplenomegaly present Auscultation: normoactive bowel sounds General: Yes no CVA tenderness Back/Spine/Pelvis Back: no CVA tenderness and No back tenderness Cervical Spine: cervical ROM normal Thoracic/Lumbar Spine: thoracic and lumbar spine normal to inspection, straight leg raise negative bilaterally, No thoraco-lumbar ROM limited and No lumbar spinal tenderness Skin Lesions: no lesions Rashes: no rashes Wounds: no wounds Neuro General: oriented to person, oriented to place, patient oriented x3, CN's II-XI intact bilaterally and No confusion Cranial nerves: Yes Equal, round and reactive pupils present and Yes Normal accommodation reflex present Cognition (Neuro): normal cognition Speech: No Abnormal speech present Gait exam (Neuro): Normal gait present Motor exam (neuro): 5/5 motor strength present throughout Extrem Right upper extremity: full ROM; no cyanosis Left upper extremity: full ROM; no cyanosis Right lower extremity: no edema Left lower extremity: no edema Psych Appearance: grossly normal Mental Status: mental status grossly normal Affect: normal affect Attitude: cooperative Thought process: Normal thought process present Immunizations Boostrix Tdap 2.5 Lf unit-8 mcg-5 Lf/0.5 mL intramuscular syringe Performing Provider: Ernesto Monreal PA-C Performing Location: [facility] Administered by: Annalisa Wray CMA on 08/03/23 08:30 Dose Route Admin Location Dispensed Lot Number Expiration Date NDC Valve Machine Operator 0.5 mL IM Left Deltoid 0.5 mL [id number] 06/08/25 58991-605-00 [employer] VIS Given Date VIS Provided VIS Publication Date 08/03/23 Single Vaccine 21 Eligibility Eligibility Date Funding Source Not [facility] Eligible 08/03/23 Private Assessment and Plan Assessment & Plan (1) Annual physical exam: Code(s): Z00.00 - Encounter for general adult medical examination without abnormal findings (2) HTN (hypertension): Code(s): I10 - Essential (primary) hypertension Qualifiers: Hypertension type: primary hypertension Qualified Code(s): I10 - Essential (primary) hypertension Plan: Patient's blood pressure acceptable today in office. Will continue her current dose of amlodipine 5 mg with goal blood pressure to remain below 140/90 (3) HLD (hyperlipidemia): Code(s): E78.5 - Hyperlipidemia, unspecified Qualifiers: Hyperlipidemia type: mixed hyperlipidemia Qualified Code(s): E78.2 - Mixed hyperlipidemia Plan: Patient has a history of borderline high cholesterol. Will continue to follow fasting lipid panel with goal LDL to remain below 160 (4) Afib: Code(s): I48.91 - Unspecified atrial fibrillation Qualifiers: Atrial fibrillation type: paroxysmal Qualified Code(s): I48.0 - Paroxysmal atrial fibrillation Plan: Patient's chads score 1. Has history of paroxysmal AFib and was seen by telecommunications sales representative in the past. Was on metoprolol though had side effects. She continues on baby aspirin indefinitely. (5) Obese: Code(s): E66.9 - Obesity, unspecified Qualifiers: Obesity type: due to excess calories Obesity classification: adult class 1 (BMI 30 - 34.9) Serious obesity comorbidity presence: without serious comorbidity Body mass index: BMI 33.0-33.9 Qualified Code(s): E66.09 - Other obesity due to excess calories; Z68.33 - Body mass index [BMI] 33.0-33.9, adult Plan: Patient does understand her BMI is over 30 will continue working on being more physically active and adapting to better eating habits to reduce her weight Orders: Orders Microalbumin, Random (w Creat) Today I10 - Essential (primary) hypertension Comprehensive [place]. Panel Fast Today I10 - Essential (primary) hypertension TDaP Immunization Today I48.0 - Paroxysmal atrial fibrillation, Z23 - Encounter for immunization Hemoglobin A1c Today R73.09 - Other abnormal glucose Lipid Panel Today E78.2 - Mixed hyperlipidemia Medications: Changed From amlodipine 5 mg PO DAILY 30 tabs 2RF I10 - Essential (primary) hyperte nsion To amlodipine 5 mg PO DAILY 90 days 90 tabs 2RF I10 - Essential (primary) hypertension From aspirin 81 mg PO DAILY I48.0 - Paroxysmal atrial fibrillation To aspirin 81 mg PO DAILY 90 days 90 tabs 2RF I48.0 - Paroxysmal atrial fibrillation Coding Level of Care Code Est Pt Level 4 (36318) Diagnoses Annual physical exam Z00.00 Primary hypertension I10 Hypertension type: primary hypertension Mixed hyperlipidemia E78.2 Hyperlipidemia type: mixed hyperlipidemia Paroxysmal atrial fibrillation I48.0 Atrial fibrillation type: paroxysmal Class 1 obesity due to excess calories without serious comorbidity with body mass index (BMI) of 33.0 to 33.9 in adult E66.09; Z68.33 Obesity type: due to excess calories Obesity classification: adult class 1 (BMI 30 - 34.9) Serious obesity comorbidity presence: without serious comorbidity Body mass index: BMI 33.0-33.9 Additional Codes ANIVAL-7 Assessment Billing - ANIVAL-7 Assessment Tool: ANIVAL-7 Assessment [id number] ([id number])
[2023-08-03 07:46] VITALS: BP 136/70; PULSE 72; O2SAT 98; BMI 33.1
== END 2023-08-03 08:35 | disposition home or self-care (01) ==
PROVIDERS: PCP Physician Assistant; Visit Provider Physician Assistant
DX: Z00.00 Encounter for general adult medical examination without abnormal findings (principal); I10 Essential (primary) hypertension; E78.2 Mixed hyperlipidemia; I48.0 Paroxysmal atrial fibrillation; E66.09 Other obesity due to excess calories; Z68.33 Body mass index [BMI] 33.0-33.9, adult; Z23 Encounter for immunization
CPT/HCPCS: 90471; 90715; 99214

== ENCOUNTER 2023-08-23 08:44 | Outpatient (AMB) | payer BC, SELFPAY ==
[2023-08-23 09:09] VITALS: BP 132/80; BMI 33.1
--- NOTE | 2023-08-23 09:09 | A.OFFVIS_ITS ---
Intake Vital Signs 08/23/23 09:09 Height 4 ft 11 in Weight 164 lb BMI 33.1 BP 132/80 Intake Visit Reasons: Colposcopy Traffic Routing Engineer: Traffic Routing Engineer Present (Nathalie) Allergies lisinopril Adverse Reaction (Intermediate, Verified 08/23/23 09:09) leg cramps HPI HPI Comments History of Present Illness Details Presenting for colposcopy for Pap negative/HPV positive PFSH Medical History Hx of obesity Hx of sleep apnea History of atrial fibrillation Hx of hyperlipidemia History of fibromyalgia Hx of essential hypertension Surgical History Hx of eye surgery H/O colonoscopy History of endometrial ablation Hx of tubal ligation Hx of cholecystectomy Hx of knee surgery Family History Father Hx of lymphoma Mother Diabetes mellitus HTN (hypertension) Osteoporosis High cholesterol Dementia Brother Stroke Diabetes mellitus Heart valve problem Social History Housing: House Are you a primary resident care associate to a significant other at home: Yes (MOM) Do you presently have visiting nurse or other home services: No Alcohol intake: never Patient Tobacco Use Status: Never used Tobacco e-Cigarette/Vaping Use: Never Used Second Hand Smoke Exposure: No service: No Current occupational status: employed Current occupation: [employer] Sexual orientation: Straight/Heterosexual Gender identity: Female Cognitive needs: No Hearing needs: No Vision needs: Yes Female Reproductive History Menstrual Age of Menarche: 12 Office Procedures Colposcopy Before the procedure was started discussed with the patient the procedure, alternatives & all the risks associated with the procedure (bleeding, infection, injury to vagina, bladder, vessels, possible need for transfusion with all its risks) then patient signed the consent UPT done in the office & negative Pap smear = negative/HPV positive Speculum inserted, acetic acid used Colposcopy done Transformation zone seen, acetowhite lesions identified at 6+9+12+3 o?clock, cervical biopsies taken from 6+9+12+3 o?clock, ECC done afterwards. Vaginoscopy of the upper vagina showed no evidence of any aceto-white lesions Monsel solution used for hemostasis. The patient tolerated well . At the end the patient was instructed to call if temp>100.4, abdominal pain, n/ v, bleeding; The patient was given the following instructions: nothing per vagina, no intercourse or bath tub use. All questions answered the patient verbalized understanding. Instructed the patient to make an appointment in 2 weeks for follow-up This note was generated with a voice recognition program. Some errors may have been overlooked during the review of this note. Sometimes these errors may affect the content or meaning of a given sentence. 67165-Vvtpizefb of cervix including upper vagina with biopsy and ECC Procedure code (CPT) selection complete Assessment & Plan Assessment & Plan (1) HPV (human papilloma virus) infection: Code(s): B97.7 - Papillomavirus as the cause of diseases classified elsewhere Plan: Colposcopy done, see procedure note Orders: Orders AMB Colposcopy Today B97.7 - Papillomavirus as the cause of diseases classified elsewhere Coding Level of Care Code Procedure Only Diagnoses HPV (human papilloma virus) infection B97.7 CPT Codes Colposcopy - CPT: 11315-Motftcpln of cervix including upper vagina with biopsy and ECC ([id number])
== END 2023-08-23 09:27 | disposition home or self-care (01) ==
LOC: HO.HWS 08:44
PROVIDERS: PCP Physician Assistant; Visit Provider Obstetrics & Gynecology
DX: R87.810 Cervical high risk human papillomavirus (HPV) DNA test positive (principal)
CPT/HCPCS: 57454

== ENCOUNTER 2023-08-23 08:44 | Outpatient (REF) | payer BC, SELFPAY | END 2023-08-23 08:45 | disposition home or self-care (01) | LOC: HO.LNP 08:44 | PROVIDERS: PCP Physician Assistant; Visit Provider Obstetrics & Gynecology | DX: A63.0 Anogenital (venereal) warts (principal); B97.7 Papillomavirus as the cause of diseases classified elsewhere | CPT/HCPCS: 57454; 88305 ==

== ENCOUNTER 2023-09-03 07:30 | Outpatient (REF) | payer BC, SELFPAY ==
[2023-09-03 08:55] LABS: Estimated Average Glucose 126 mg/dL
[2023-09-03 09:10] LABS: Alanine Aminotransferase 14 U/L (0-31); Albumin Level 4.1 g/dL (3.5-5.0); Alkaline Phosphatase 135 U/L (39-117); Anion Gap 12 (12-20); Aspartate Amino Transferase 11 U/L (5-31); Bilirubin Total 0.2 mg/dL (0.0-1.0); Blood Urea Nitrogen 10 mg/dL (9-16); Carbon Dioxide 27 mmol/L (22-29); Chloride 108 mmol/L (96-108); Cholesterol 207 mg/dL (<200); Estimated Glomerular Filt Rate > 60; Glucose Fasting 115 mg/dL (60-99); HDL Cholesterol 46 mg/dL (>40); LDL Cholesterol Calculated 143 mg/dL (<100); Potassium 3.8 mmol/L (3.3-5.1); Sodium 143 mmol/L (135-145); Total Protein 7.3 g/dL (6.5-8.0); Triglycerides 93 mg/dL (<150)
[2023-09-03 09:49] LABS: Creatinine Urine 192.14 mg/dL; Microalbum/Creatinine Ratio Ur 6.2 ug/mg cr (<30)
== END 2023-09-03 07:31 | disposition home or self-care (01) ==
LOC: HO.LAB 07:30
PROVIDERS: PCP Physician Assistant; Visit Provider Physician Assistant
DX: R73.09 Other abnormal glucose (principal); E78.2 Mixed hyperlipidemia; I10 Essential (primary) hypertension
CPT/HCPCS: 36415; 80053; 80061; 82043; 82570; 83036

== ENCOUNTER 2023-09-13 07:47 | Outpatient (AMB) | payer BC, SELFPAY ==
--- NOTE | 2023-09-13 08:03 | A.OFFVIS_ITS ---
Intake Vital Signs 09/13/23 08:07 Height 4 ft 11 in Weight 163 lb 2.273 oz BMI 32.9 BP 122/78 Intake Visit Reasons: COLPO RESULTS Allergies lisinopril Adverse Reaction (Intermediate, Verified 08/23/23 09:09) leg cramps HPI HPI Comments History of Present Illness Details Presenting post colpo for follow-up. The patient is doing well with no complaints. The pathology showed the following: A. Endocervix, curettage: - Mildly inflamed squamous epithelium wi th reactive changes. - Scant endocervical epithelium within n ormal limits; mucoinflammatory material. B. Cervix, 3 o'clock, biopsy: - Mildly inflamed squamous epithelium wi th reactive changes. - Scant endocervical epithelium within n ormal limits; mucoinflammatory material. C. Cervix, 6 o'clock, biopsy: Inflamed cervical transformation zone mucosa with reactive changes. D. Cervix, 9 o'clock, biopsy: - Mildly inflamed squamous epithelium wi th reactive changes. - Scant endocervical epithelium within n ormal limits; mucoinflammatory material. E. Cervix, 12 o'clock, biopsy: Squamous and endocervical epithelium within normal limits; mucoinflammatory material PFSH Medical History Hx of obesity Hx of sleep apnea History of atrial fibrillation Hx of hyperlipidemia History of fibromyalgia Hx of essential hypertension Surgical History Hx of eye surgery H/O colonoscopy History of endometrial ablation Hx of tubal ligation Hx of cholecystectomy Hx of knee surgery Family History Father Hx of lymphoma Mother Diabetes mellitus HTN (hypertension) Osteoporosis High cholesterol Dementia Brother Stroke Diabetes mellitus Heart valve problem Social History Housing: House 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 care 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: Yes (MOM) Do you presently have visiting nurse or other home services: No Alcohol intake: never Patient Tobacco Use Status: Never used Tobacco e-Cigarette/Vaping Use: Never Used Second Hand Smoke Exposure: No service: No Current occupational status: employed Current occupation: [employer] Sexual orientation: Straight/Heterosexual Gender identity: Female Cognitive needs: No Hearing needs: No Vision needs: Yes Female Reproductive History Menstrual Age of Menarche: 12 Review of Systems Const All systems reviewed & are unremarkable except as noted in HPI and below Reports as per HPI and Reports no additional complaints GI Reports no additional complaints Reports no additional complaints Physical Exam Vital Signs: Last Vital Signs BP 122/78 09/13/23 08:07 BMI result Body Mass Index 32.9 Assessment & Plan Assessment & Plan (1) HPV (human papilloma virus) infection: Code(s): B97.7 - Papillomavirus as the cause of diseases classified elsewhere Plan: Discussed with the patient the pathology results of the colposcopy biopsies & endocervical curettage (negative). Discussed with the patient the sensitivity specificity, positive and negative predictive value in detecting cervical cancer in addition discussed the regression, persistence and progression rates. Recommended co-testing in 12 months, if cytology and or HPV are abnormal will proceed was colposcopy biopsy and endocervical curettage. Instructions given to the patient to schedule a co test appointment in 1 year. All questions answered the patient verbalized understanding. Coding Level of Care Code Est Pt Level 3 (15196) Diagnoses HPV (human papilloma virus) infection B97.7
[2023-09-13 08:07] VITALS: BP 122/78; BMI 32.9
== END 2023-09-13 08:19 | disposition home or self-care (01) ==
LOC: HO.HWS 07:47
PROVIDERS: PCP Physician Assistant; Visit Provider Obstetrics & Gynecology
DX: R87.810 Cervical high risk human papillomavirus (HPV) DNA test positive (principal)
CPT/HCPCS: 99213

== ENCOUNTER → 2023-09-13 07:47 | Outpatient (BNVA) | payer BC, SELFPAY | PROVIDERS: PCP Physician Assistant; Visit Provider Obstetrics & Gynecology ==

== ENCOUNTER 2024-02-17 09:37 | Outpatient (REF) | payer OTHER, SELFPAY ==
--- NOTE | ~2024-02-17 | MM_ITS ---
EXAMINATION: MM SCREENING DIGITAL BREAST TOMOSYNTHESIS, BILATERAL CLINICAL INFORMATION: Screening. Asymptomatic. COMPARISON: Mammography: This study is compared with prior exams dating back to 2018. TECHNIQUE: Digital breast tomosynthesis is performed in both the craniocaudal and mediolateral oblique views along with computer-aided detection (CAD). Synthesized 2D images are generated from the tomosynthesis. FINDINGS: There are scattered areas of fibroglandular density (ACR BI-RADS breast composition Category b). There are no significant masses, abnormal calcifications, or other abnormalities. MM/MM tomosynthesis screening BI IMPRESSION: No mammographic evidence of malignancy. ASSESSMENT: BI-RADS BI-RADS 1 - Negative RECOMMENDATION: Routine annual mammography screening. 1 year F/U This examination should not preclude the clinical evaluation of a suspicious palpable abnormality. This patient's information was entered into a reminder system with a target due date for their next mammogram. Electronically signed by: Clemencia Rowan MD 03/15/2024 04:59 PM EDT
== END 2024-02-17 09:38 | disposition home or self-care (01) ==
LOC: HO.MAMMO 09:37
PROVIDERS: PCP Physician Assistant Medical; Visit Provider Physician Assistant Medical
DX: Z12.31 Encounter for screening mammogram for malignant neoplasm of breast (principal)
CPT/HCPCS: 77063; 77067

== ENCOUNTER → 2024-02-17 09:45 | Outpatient (BNV) | payer OTHER, SELFPAY | PROVIDERS: PCP Physician Assistant Medical; Visit Provider Radiology Diagnostic Radiology | DX: Z12.31 Encounter for screening mammogram for malignant neoplasm of breast (principal) | CPT/HCPCS: 77063; 77067 ==

== ENCOUNTER 2024-04-12 12:00 | Emergency (ER) | payer OTHER, SELFPAY ==
--- NOTE | 2024-04-12 12:03 | ED.GENADULT ---
HPI - General Adult General Chief complaint: General Medical Stated complaint: High BP? Time Seen by Provider: 04/12/24 15:45 Source: patient, RN notes reviewed and old records reviewed Mode of arrival: ambulatory History of Present Illness ED Provider: Coleman Hernandez PA-C HPI narrative: 63 yo F with a PMH of AFib, HTN, HDL, prediabetes, ALIZA presents to the ED complaining of feeling off with high blood pressure readings at home. Patient states BP was 200/100s. Patient states that recently she has been under increased stress and feels that that may be causing symptoms. Reports compliance with her antihypertensives, denies missing any doses. Reports generalized fatigue. Denies headache, dizziness, lightheadedness, chest pain, palpitations, shortness of breath, nausea, vomiting, vision changes including blurry vision. No further complaints at this time. Related Data Home Medications ?Medication ?Instructions ?Recorded ?Confirmed multivitamin 1 tab PO DAILY 09/22/20 08/03/23 Previous Rx's ?Medication ?Instructions ?Recorded amlodipine 5 mg tablet 5 mg PO DAILY 90 days #90 tabs 08/03/23 aspirin 81 mg tablet,delayed 81 mg PO DAILY 90 days #90 tabs 08/03/23 release Allergies Allergy/AdvReac Type Severity Reaction Status Date / Time lisinopril AdvReac Intermediate leg cramps Verified 04/12/24 12:05 Review of Systems Review of Systems: Yes all other systems are reviewed and are negative Constitutional: Constitutional: Reports as per HPI Neurologic: Denies Abnormal speech present [facility] Past Medical History Attestation statement: The following information was validated with the patient. Source: old records reviewed Medical History Hx of obesity Hx of sleep apnea History of atrial fibrillation Hx of hyperlipidemia History of fibromyalgia Hx of essential hypertension Surgical History Hx of eye surgery H/O colonoscopy History of endometrial ablation Hx of tubal ligation Hx of cholecystectomy Hx of knee surgery Family History Family History Father Hx of lymphoma Mother Diabetes mellitus HTN (hypertension) Osteoporosis High cholesterol Dementia Brother Stroke Diabetes mellitus Heart valve problem Social History Social History (Reviewed 04/12/24 @ 18:00 by PRITESH Low Housing: House 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 care 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: Yes (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) Do you presently have visiting nurse or other home services: No Alcohol intake: never Patient Tobacco Use Status: Never used Tobacco Smoked in Last 30 Days: No e-Cigarette/Vaping Use: Never Used Second Hand Smoke Exposure: No Use of substances other than those prescribed or required for medical reasons: No Advance Directives: No Advance Directives Information Provided: Yes service: No Current occupational status: employed Current occupation: [employer] Sexual orientation: Straight/Heterosexual Gender identity: Female Cognitive needs: No Hearing needs: No Vision needs: Yes Physical Exam ED Vital Signs: Vital Signs - 24 hr 04/12/24 12:04 04/12/24 14:46 04/12/24 18:07 Temperature 97.8 F 98.5 F 98.2 F Pulse Rate 81 70 66 Respiratory Rate 20 18 16 Blood Pressure 195/84 H 176/78 H 176/83 H Pulse Oximetry 100 99 98 Oxygen Delivery Method Room Air Room Air Room Air 04/12/24 18:40 Temperature 98.2 F Pulse Rate 66 Respiratory Rate 16 Blood Pressure 176/83 H Pulse Oximetry 98 Oxygen Delivery Method Room Air BMI result Body Mass Index 32.9 Const General: cooperative, no acute distress, alert and awake Orientation/consciousness: patient oriented x3 Limitations: no limitations HENMT Head: Yes normal to inspection, Yes normocephalic and Yes atraumatic Ears: hearing grossly normal bilaterally General nose exam: Normal external nose present Face and sinus: Yes normal facial exam Mouth: Normal oral and palatal mucosa present Throat: Yes posterior oropharynx normal Eyes General: appearance normal, both eyes and all related structures Pupils: Equal, round and reactive pupils present EOM: EOMs intact bilaterally Neck Neck: Yes normal visual inspection and Yes supple Chest Chest palpation & inspection: normal inspection of the chest Resp Effort & Inspection: normal respiratory effort Auscultation: clear to auscultation bilaterally Cardio Rate: regular rate Rhythm: regular rhythm Heart sounds: S1 normal heart sound present and S2 normal heart sound present GI Inspection: Yes normal to inspection Palpation (GI): Soft to palpation, nontender, no guarding and not rigid Skin General skin exam: no rashes or lesions noted Rashes: no rashes Wounds: no wounds Neuro General: patient oriented x3, gait normal, tone normal, moves all extremities, no focal motor deficits and CN's II-XI intact bilaterally Cranial nerves: Yes CN's II-XII intact bilaterally, Yes Equal, round and reactive pupils present and Yes Bilaterally intact EOM present Cognition (Neuro): normal cognition Speech: No Abnormal speech present Gait exam (Neuro): Normal gait present Motor exam (neuro): 5/5 motor strength present throughout and no tremor noted Extrem General: Yes normal to inspection Course Course Course Narrative: This is a rapid medical exam performed by Leona Tuttle NP: Additional HPI, ROS, PE not included below will be deferred to primary provider. Patient is a 63-year-old female with history of HTN presenting to the ED with reports of high reading at home, 200s/100s, states she feels more anxious than normal. Denies headache, blurred vision, chest pain, dyspnea. States she takes her BP meds at night and did take them last night. BP 196/83 in triage. Patient is A+Ox3, in no acute distress, respirations even and unlabored, skin pink, warm, dry, ambulating independently with steady gait Plan: EKG, labs -labs reassuring. Troponin negative > patient requesting discharge. Asymptomatic at present -Discussed with patient we will not be altering her home antihypertensives. Needs to establish care with a PCP. Results discussed with patient including worrisome signs and symptoms and strict return precautions, and when to return to the emergency department. They verbalized understanding and feel safe for discharge at this time. Medical Decision Making Medical Decision Making [facility] Narrative: 63 yo F with a PMH of AFib, HTN, HDL, prediabetes, ALIZA presents to the ED complaining of feeling off with high blood pressure readings at home. On exam, patient is lying comfortably in bed, nontoxic appearing, no focal neuro deficits. Hypertensive 195 over ED for in triage, currently 157/73 on this chart writer's evaluation. Concern for uncontrolled chronic hypertension, hypertensive urgency, hypertensive emergency, anxiety. unlikely CVA or ACS Plan: EKG, labs, blood pressure monitoring Differential Diagnosis Differential Diagnoses: The differential diagnosis associated with the presentation includes As above Admission/Observation Consideration of admission/observation: Escalation of care including admission/observation considered Lab Data [facility] Lab Attestation statement: I reviewed the patient's lab results. 04/12/24 12:38 04/12/24 12:38 Labs: Lab Results 04/12/24 Range/Units 12:38 WBC 6.8 (4.8-10.8) X10*3/uL RBC 4.35 (4.20-5.50) X10*6/uL Hgb 13.2 (12.0-16.0) g/dl Hct 39.4 (37.0-47.0) % MCV 90.6 (80.0-98.0) fL MCH 30.3 (27.0-33.0) pg MCHC 33.5 (31.0-35.0) g/dl RDW 13.4 (11.0-16.0) % Plt Count 236 (160-400) X10*3/uL MPV 10.7 (9.4-12.3) fL Immature Gran % (Auto) 0.1 (0.0-0.4) % Neut % (Auto) 54.6 (45-73) % Lymph % (Auto) 38.0 (20-40) % Frederick % (Auto) 5.2 (2-11) % Eos % (Auto) 1.8 (0-4) % Baso % (Auto) 0.3 (0-2) % Lymph # (Auto) 2.6 (1.2-4.9) X10*3/uL Frederick # (Auto) 0.4 (0.1-1.2) X10*3/uL Eos # (Auto) 0.1 (0.0-0.4) X10*3/uL Baso # (Auto) 0.0 (0.0-0.2) X10*3/uL Abs Immat Gran (auto) 0.01 (0.00-0.03) X10*3/uL Absolute Neuts (auto) 3.7 (2.0-8.3) x10*3/uL Absolute Nucleated RBC 0.000 (0.0-0.012) X10*3/uL Nucleated RBC % (auto) 0.0 (0.0-0.2) /100WBC PT 11.3 (10.9-12.4) SEC INR 1.0 (0.9-1.1) Sodium 144 (135-145) mmol/L Potassium 3.5 (3.3-5.1) mmol/L Chloride 106 (96-108) mmol/L Carbon Dioxide 29 (22-29) mmol/L Anion Gap 13 (12-20) BUN 12 (9-16) mg/dL Creatinine 0.92 (0.5-1.4) mg/dL Estim Creat Clear Calc 54.1 Estimated GFR > 60 Random Glucose 120 H (60-115) mg/dL Calcium 9.2 (8.4-10.2) mg/dL Total Bilirubin 0.2 (0.0-1.0) mg/dL AST 13 (5-31) U/L ALT 18 (0-31) U/L Alkaline Phosphatase 133 H (39-117) U/L Troponin I High Sens < 2.7 (<3.5-17.0) ng/L Total Protein 7.7 (6.5-8.0) g/dL Albumin 4.5 (3.5-5.0) g/dL Independent Interpretation I performed an independent interpretation of an: EKG (My interpretation EKG normal sinus rhythm rate of 71. ME interval 120. QTC 473. No significant change when compared to prior. No STEMI) Radiology Impression Discussion of test interpretation with radiology: I have reviewed the radiologist's reading. External Record Review External record reviewed: Inpatient record, Office record, Outpatient record, Prior outpatient labs, Prior outpatient radiology, Primary care record and Outside ED record Tests considered The following testing was considered but not selected: As above Chronic Conditions Patient?s care impacted by: Hypertension Discharge Plan Discharge Clinical Impression: Chronic hypertension Patient Disposition: Home, Self-Care Instructions: Hypertension (ED) Additional Instructions: Please continue home amlodipine. Monitor your blood pressure daily Please establish care with a primary care doctor If you develop headache, chest pain, weakness, vision changes return to the ED Prescriptions: No Action multivitamin Tablet 1 tab PO DAILY amlodipine 5 mg tablet 5 mg PO DAILY 90 Days Qty: 90 2RF aspirin 81 mg tablet,delayed release (DR/EC) 81 mg PO DAILY 90 Days Qty: 90 2RF Referrals: [facility] [place]Provider Group] [facility] [place] [facility], Bella [Provider Group] [facility] [place] [facility],Judy [Provider Group] Elizabeth Berumen PA [Primary Care Provider] - 3 days Interventions: ED Discharge Assessment Last Done: 04/12/24 18:40 Discharge Date/Time: 04/12/24 18:42 Print Language: Yoruba
[2024-04-12 12:04] VITALS: BP 195/84; PULSE 81; RESP 20; TEMP 36.6; O2SAT 100; BMI 32.9
--- NOTE | 2024-04-12 12:05 | ECG_ITS ---
Test Reason : htn Blood Pressure : / mmHG Vent. Rate : 071 BPM Atrial Rate : 071 BPM P-R Int : 120 ms QRS Dur : 096 ms QT Int : 436 ms P-R-T Axes : 061 -29 032 degrees QTc Int : 473 ms Normal sinus rhythm Low voltage QRS Cannot rule out Anterior infarct , age undetermined Abnormal ECG When compared with ECG of 27-FEB-2023 00:21, No significant change was found Referred By: Abril Tuttle Electronically Signed By:JENNIFER THAKUR MD
[2024-04-12 12:50] LABS: MANUAL DIFF FLAG NO
[2024-04-12 12:52] LABS: Basophils Percent Auto 0.3 % (0-2); Eosinophils Absolute Auto 0.1 X10*3/uL (0.0-0.4); Eosinophils Percent Auto 1.8 % (0-4); Hematocrit 39.4 % (37.0-47.0); Hemoglobin 13.2 g/dl (12.0-16.0); Imm Gran Abs Auto 0.01 X10*3/uL (0.00-0.03); Imm Gran Pct Auto 0.1 % (0.0-0.4); Lymphocytes Absolute Auto 2.6 X10*3/uL (1.2-4.9); Mean Corpuscular HGB Conc 33.5 g/dl (31.0-35.0); Mean Corpuscular Hemoglobin 30.3 pg (27.0-33.0); Mean Corpuscular Volume 90.6 fL (80.0-98.0); Mean Platelet Volume 10.7 fL (9.4-12.3); Monocytes Absolute Auto 0.4 X10*3/uL (0.1-1.2); Monocytes Percent Auto 5.2 % (2-11); Neutrophils Absolute Auto 3.7 x10*3/uL (2.0-8.3); Neutrophils Percent Auto 54.6 % (45-73); Platelet Count 236 X10*3/uL (160-400); Red Blood Count 4.35 X10*6/uL (4.20-5.50); Red Cell Distribution Width 13.4 % (11.0-16.0); White Blood Count 6.8 X10*3/uL (4.8-10.8)
[2024-04-12 12:58] LABS: Prothrombin Time 11.3 SEC (10.9-12.4)
[2024-04-12 13:04] LABS: Chloride 106 mmol/L (96-108); Potassium 3.5 mmol/L (3.3-5.1); Sodium 144 mmol/L (135-145)
[2024-04-12 13:05] LABS: Alanine Aminotransferase 18 U/L (0-31); Albumin Level 4.5 g/dL (3.5-5.0); Alkaline Phosphatase 133 U/L (39-117); Anion Gap 13 (12-20); Aspartate Amino Transferase 13 U/L (5-31); Bilirubin Total 0.2 mg/dL (0.0-1.0); Blood Urea Nitrogen 12 mg/dL (9-16); Calcium 9.2 mg/dL (8.4-10.2); Carbon Dioxide 29 mmol/L (22-29); Creatinine Clr Calc Pharmacy 54.1; Estimated Glomerular Filt Rate > 60; Glucose Random 120 mg/dL (60-115); Total Protein 7.7 g/dL (6.5-8.0)
[2024-04-12 13:13] LABS: Troponin-I High Sensitivity < 2.7 ng/L (<3.5-17.0)
--- OUTSIDE RECORDS SUMMARY | 2024-04-12 13:30 | XMS_ITS | Continuity of Care Document ---
Author Organization [facility] Adult Address [address] [place] [address]- Care Team Providers Care Screenplay Writer Name Role Phone Elizabeth Escobar Primary Care P krystin Encounter [facility] [place] Date(s): 01/12/24 - 02/11/[address] [facility] Adult [address] [place] [phone]- Allergies, Adverse Reactions, Alerts Substance Reaction Severity Status lisinopril Active Immunizations Given and Recorded Vaccine Date Status Refusal Reason tetanus/diphtheria/pertussis, acel(Tdap) 08/03/23 Recorded SARS-CoV-2 (COVID-19) mRNA BNT-162b2 vac 03/19/21 Recorded SARS-CoV-2 (COVID-19) mRNA BNT-162b2 vac 02/26/21 Recorded pneumococcal 23-valent vaccine 02/06/12 Given Medications amLODIPine 5 mg oral tablet 1 tablet = 5 mg, By Mouth, Daily, TAKE 1 TABLET BY MOUTH DAILY, # 90 tablet, 1 Refills, Maintenance, 01/20/24 13:17:00 EDT, [facility], [id number] Partial fill upon patient request if the prescription is for a schedule II opioid drug., 1... Start Date: 01/20/24 Status: Ordered aspirin 81 mg oral enteric coated tablet By Mouth, Daily, 0 Refills, EC Tablet Start Date: 02/07/12 Status: Ordered Problem List Condition Confirmation Course Effective Dates Status Health St [facility]us Informant Hypertension Confirmed Active Obese class I Confirmed Active Screening for breast cancer Confirmed Active Prediabetes Confirmed Active Social History Social History Type Response Smoking Status Never (less than 100 in lifetime); Interested in cessation: No; Patient wants NRT during admission No entered on: 01/20/24 Sex Patient Care team information Care Team Personnel Name: Sarah MACIEL, Elizabeth Ty Position: [facility] PCO Associate Professional Member Role: PCP Address: Address: [address] [place] [address]- Care Team Related Persons Name: KATHERINE MORLEY Address: home [address] [place] [address] Name: PERRI WILLIAMSON Address: home [address] [place] [address] Name: CHET LASSITER Address: home [address] [place] [address]
--- OUTSIDE RECORDS SUMMARY | 2024-04-12 13:30 | XMS_ITS | Continuity of Care Document ---
Author Organization [facility] Adult Address [address] [place] [address]- Care Team Providers Care Health Assistant Name Role Phone Sarah MACIEL, Elizabeth Ty Primary Care P krystin Encounter [facility] [place] Date(s): 02/02/24 - 03/03/24 [facility] Adult [address] [place] [phone]- [place] Allergies, Adverse Reactions, Alerts Substance Reaction Severity Status lisinopril Bilateral leg cramps Active Immunizations Given and Recorded Vaccine Date Status Refusal Reason tetanus/diphtheria/pertussis, acel(Tdap) 08/03/23 Recorded SARS-CoV-2 (COVID-19) mRNA BNT-162b2 vac 03/19/21 Recorded SARS-CoV-2 (COVID-19) mRNA BNT-162b2 vac 02/26/21 Recorded pneumococcal 23-valent vaccine 02/06/12 Given Medications amLODIPine 5 mg oral tablet 1 tablet = 5 mg, By Mouth, Daily, TAKE 1 TABLET BY MOUTH DAILY, # 90 tablet, 1 Refills, Maintenance, 01/20/24 13:17:00 EDT, Tablet, [id number], Partial fill upon patient request if the prescription is for a schedule II opioid drug., 1... Start Date: 01/20/24 Status: Ordered aspirin 81 mg oral enteric coated tablet By Mouth, Daily, 0 Refills, EC Tablet Start Date: 02/07/12 Status: Ordered Problem List Condition Confirmation Course Effective Dates Status Health St at[facility] Informant History of atrial fibrillation 1 Confirmed Active Hypertension Confirmed Active Obese class I Confirmed Active Screening for breast cancer Confirmed Active Prediabetes Confirmed Active 1per previuos PCP note: Has a hsotry of Afib, chads score 1, continues on baby aspirin 81mg. She was previously on metoprolol though had side effect Social History Social History Type Response Smoking Status Never (less than 100 in lifetime); Interested in cessation: No; Patient wants NRT during admission No entered on: 01/20/24 Sex Patient Care team information Care Team Personnel Name: Elizabeth Escobar Position: [facility] PCO Associate Professional Member Role: PCP Address: Address: [address] [place] [address]. [address] [place] [address]- Care Team Related Persons Name: KATHERINE MORLEY Address: home [address] [place] [id number] Name: PERRI WILLIAMSON Address: home [address] [place] [address] Name: CHET LASSITER Address: home [address] [place] [address]
--- OUTSIDE RECORDS SUMMARY | 2024-04-12 13:30 | XMS_ITS | Continuity of Care Document ---
Author Organization [facility] Adult Address [address] [place] [address]- Care Team Providers Care Decorative Engraver Apprentice Name Role Phone Elizabeth Escobar Primary Care P krystin Encounter [facility] [place] [place] Date(s): 01/23/24 - 02/22/24 [facility] Adult [address] [place] [phone]- Allergies, Adverse Reactions, Alerts Substance Reaction Severity [...] 1 Refills, Maintenance, 01/20/24 13:17:00 EDT, Tablet, [id number], Partial fill upon patient request if the [...] Personnel Name: Sarah MACIEL, Elizabeth Ty Position: [facility] PCO Associate Professional Member Role: PCP Address: Address: [address] [place] [address]- Care Team Related Persons Name: KATHERINE MORLEY Address: home [address] [place] [address] Name: PERRI WILLIAMSON Address: [address] [place] [address] Name: CHET LASSITER Address: [address] [place] [address]
--- OUTSIDE RECORDS SUMMARY | 2024-04-12 13:30 | XMS_ITS | Continuity of Care Document ---
Author Organization [facility] Adult Address [address] [place] [address]- Care Team Providers Care Container Finisher Name Role Phone Sarah MACIEL, Elizabeth Ty Primary Care P luis ezahirajosie Encounter [facility] ACCT R [id number] Date(s): 01/20/24 - 01/27/24 [facility] [address] [place] [id number]- Encounter Diagnosis Establishing care with new doctor, encounter for(Discharge Diagnosis) - 01/20/24 Hypertension(Discharge Diagnosis) - 01/20/24 Prediabetes(Discharge Diagnosis) - 01/20/24 Obese class I(Discharge Diagnosis) - 01/20/24 Arrhythmia(Discharge Diagnosis) - 01/20/24 Attending Physician: Elizabeth Escobar Allergies, Adverse Reactions, Alerts Substance Reaction Severity [...] 1 Refills, Maintenance, 01/20/24 13:17:00 EDT, Tablet, [id number], Partial fill upon patient request if the [...] breast cancer Confirmed Active Prediabetes Confirmed Active Diagnosis Diagnosis Type Effective Dates Health Status Clinical Service Informant Establishing care with new doctor, encounter for Discharge Diagnosis 01/20/24 Hypertension Discharge Diagnosis 01/20/24 Prediabetes Discharge Diagnosis 01/20/24 Obese class I Discharge Diagnosis 01/20/24 Arrhythmia Discharge Diagnosis 01/20/24 Procedures Procedure Date Related Diagnosis Body Site Status Cholecystectomy Completed Vital Signs Most recent to oldest [Reference Range]: 1 2 3 Height 148 cm (01/20/24 1:15 PM) 148 cm (01/20/24 12:54 PM) 148 cm (01/20/24 12:42 PM) Weight 75.0 kg (01/20/24 12:42 PM) Oxygen Saturation [94-100 %] 97 % (01/20/24 12:42 PM) Pulse Rate [55-90 bpm] 66 bpm (01/20/24 12:42 PM) Body Mass Index [18.5-24.99 kg/m2] 34.24 kg/m2 *>HHI* (01/20/24 12:42 PM) Blood Pressure [90-138/55-84 mm Hg] 135/61mm Hg (01/20/24 1:15 PM) 146/80mm Hg *H* (01/20/24 12:54 PM) 146/80mm Hg *H* (01/20/24 12:42 PM) Temperature [96.8-100.4 DegF] 98.3 DegF (01/20/24 12:42 PM) Mode of Delivery (Oxygen) Room air (01/20/24 12:42 PM) Blood pressure sites Arm, left (01/20/24 1:15 PM) Arm, left (01/20/24 12:54 PM) Arm, left (01/20/24 12:42 PM) Temperature Route Temporal (01/20/24 12:42 PM) Weight Obtained Via Standing scale (01/20/24 12:42 PM) Social History Social History Type Response Smoking Status Never (less than 100 in lifetime); Interested in cessation: No; Patient wants NRT during admission No entered on: 01/20/24 Sex Note * Merissa Brown: PERFORM Event Display: Patient Education/Instruction Authored Date: [id number] [facility] [address] [place] [address] Name: MERON HOLT : 1960?? Visit: 01/20/2024 12:40?? Ambulatory Visit Instructions ?? Your Care Team Primary Care Provider Elizabeth Escobar? This Visit Provider Elizabeth Escobar Your Diagnosis Establishing care with new doctor, encounter for Hypertension Prediabetes Obese class I Screening for breast cancer Arrhythmia Vitals Signs Temperature: 98.3 DegF Height: 148 cm Pulse Rate: 66 bpm Weight: 75 kg Systolic Blood Pressure: 135 mm Hg Body Mass Index:??34.24 kg/m2??Critical Diastolic Blood Pressure: 61 mm Hg Body surface area: 1.76 Oxygen Saturation: 97 % ?? What to do next Follow-Up Appointments Follow Up with??Elizabeth Escobar When:??In 6 months 07/22/2024 EST Why: needs a physical scheduled Where: [address] [place] [address]- Future Orders Comprehensive Metabolic Panel - Routine, Once, 01/20/24 13:07:00 EDT, Within 3 Days, [facility], Blood?? Hemoglobin A1C (Monitoring) - Routine, Once, 01/20/24 13:07:00 EDT, Within 3 Days, [facility], Blood?? Medications The list below reflects the information in our records and provided by you today along with any changes made during this visit. Please continue your medications until treatment is completed or stopped by your provider. If this is different from the information you have or there are other questions,please contact the prescribing provider. What How Much When Instructions Changed Amlodipine (amLODIPine 5 mg oral tablet) 1 tab(s) Oral Daily TAKE 1 TABLET BY MOUTH DAILY ?? Pickup at [facility] #[id number] Unchanged Aspirin (aspirin 81 mg oral enteric coated tablet) Oral Daily Pharmacy Information [facility] #[id number]: [address], [place] [id number] [phone] Test Performed Below is a partial list of the tests performed during your Visit. You may have had other tests and procedures not included in this list. Please discuss all test results with your provider. Comprehensive Metabolic Panel?-- Results Pending -- Hemoglobin A1C (Monitoring)?-- Results Pending -- MM Screening Digital Mammo?-- Results Pending -- You will be contacted within 72 hours with your results. Medications and Immunizations Administered Medications Given During Visit No medications given during this visit.?? Allergies (NKA means No Known Allergies) lisinopril Common Emergency Awareness Tips IS IT A STROKE? Act FAST and Check for these signs: FACE Does the face look uneven? ARM Does one arm drift down? SPEECH Does their speech sound strange? TIME Call at any sign of stroke ?? Heart Attack Signs Chest discomfort: Most heart attacks involve discomfort in the center of the chest and lasts more than a few minutes, or goes away and comes back. It can feel like uncomfortable pressure, squeezing, fullness or pain. Discomfort in upper body: Symptoms can include pain or discomfort in one or both arms, back, neck, jaw or stomach. Shortness of breath: With or without discomfort. Other signs: Breaking out in a cold sweat, nausea, or lightheaded. Remember, MINUTES DO MATTER. If you experience any of these heart attack warning signs, call to get immediate medical attention! ?? Smoking can increase your chances of developing chronic health problems and can cause harmful effects to other family members in your house. If you smoke, you are strongly encouraged to quit. Please call [facility] at [phone] or [phone] ([phone]) or log in to [email or web address] for referrals to smoking cessation programs. ?? The National Suicide Prevention Hotline is available 24/01 if you or someone you know needs to find a reason to keep living. By calling 7-582-895-talk (3674) you'll be connected to a skilled, trained counselor at a crisis center in your area. [facility] Health Portal You can view and manage your care through the patient portal or by using a health care tomi of your choosing. [employer] is a website that allows you to securely view your medical information including your hospital discharge summary, office visit summaries, medications and follow-up visits. You can also request appointments, renew medications, and request access to your medical information using a health care tomi of your choosing, or just ask a question. You can enroll at [email or web address] or register during your next office visit. [facility], in keeping with [facility] guidance, no longer requires face masks for staff, patientsor visitors in most situations. Similiar to time spent indoors at other locations, there is the chance that you were exposed to repiratory viruses during your time with us (such as flu or COVID-19). If you develop symptoms concerning for a viral respiratory infection, please seek testing (and treatment if indicated) from your medical provider or home test kit. ?? Disclaimer: The information provided is of a general nature and is intended to be used in conjunction with the recommendations and advice of your health care practitioner. Every effort has been made to ensure that the information provided is accurate and complete at the time it is provided to you however, as your needs change, or, as new information becomes available, different or additional instructions may be required. ?? If you have questions, please consult with your primary care provider or pharmacist, as appropriate. This information is not intended to serve as substitution for assessment and evaluation by a qualified health care provider. If you do not have a primary care provider, you may find a [facility] provider by calling [facility] Link at [phone]. Patient Care team information Care Team Personnel Name: Sarah MACIEL, Elizabeth Ty Position: [facility] PCO Associate Professional Member Role: PCP Address: Address: [address] [place] [address]. [address] [place] [address]- Care Team Related Persons Name: KATHERINE MORLEY Address: home [address] [place] [address] Name: PERRI WILLIAMSON Address: [address] [place] [address] Name: CHET LASSITER Address: [address] [place] [address]
[2024-04-12 14:46] VITALS: BP 176/78; PULSE 70; RESP 18; TEMP 36.9; O2SAT 99
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
[2024-04-12 18:07] VITALS: BP 176/83; PULSE 66; RESP 16; TEMP 36.8; O2SAT 98
[2024-04-12 18:40] VITALS: BP 176/83; PULSE 66; RESP 16; TEMP 36.8; O2SAT 98
== END 2024-04-12 18:42 | disposition home or self-care (01) ==
PROVIDERS: Registered Nurse Emergency; Emergency Provider Internal Medicine; PCP Physician Assistant Medical
DX: R03.0 Elevated blood-pressure reading, without diagnosis of hypertension (principal); R94.31 Abnormal electrocardiogram [ECG] [EKG]; Z79.899 Other long term (current) drug therapy
CPT/HCPCS: 36415; 80053; 84484; 85025; 85610; 93005; 99283; 99284

== ENCOUNTER → 2024-04-12 12:05 | Outpatient (BNV) | payer OTHER, SELFPAY | PROVIDERS: PCP Physician Assistant Medical; Visit Provider Internal Medicine Cardiovascular Disease | DX: R94.31 Abnormal electrocardiogram [ECG] [EKG] (principal) | CPT/HCPCS: 93010 ==

== ENCOUNTER 2024-09-13 09:57 | Outpatient (AMB) | payer MEDICARE, OTHER, SELFPAY ==
[2024-09-13 10:00] VITALS: BP 122/80; PULSE 79; O2SAT 98; BMI 33.8
--- NOTE | 2024-09-13 10:00 | AM.OFFVISMDC ---
Intake Vital Signs 09/13/24 10:00 Height 4 ft 11 in Weight 167 lb 4 oz BMI 33.8 BP 122/80 Blood Pressure Location Lt brachial Position Sitting Pulse 79 Pulse Source Pulse Oximeter Pulse Oximetry (%) 98 Oxygen Delivery Method Room Air Intake Visit Reasons: AWV Precipitator Operator Required: No Accompanied by: Self / Same As Patient Allergies lisinopril Adverse Reaction (Intermediate, Verified 09/13/24 10:21) leg cramps Medication List - Last Reconciled 09/13/24 by Ernesto Monreal PA-C amlodipine 5 mg PO DAILY 90 days aspirin 81 mg PO DAILY 90 days multivitamin 1 tab PO DAILY Do you need a note to return to daycare/school/sports/work: No HPI AWV HPI Details Patient is a 64 year-old female here today for follow-up visit.? Patient's past medical history significant for obesity, hypertension, impaired glucose metabolism, history paroxysmal AFIB, hyperlipidemia. Today we discussed her end of life planning and her seminole of care. We also discussed her comprehensive care plan which was scanned into patient's documents Vaccine: UTD with COVID vaccine, utd with tdap . decline flu , needs Shingrex, need PCV-20 Mammo: Needs up-to-date mammogram -order has been made by FINANCIAL PLANNING ADVISOR FINANCIAL PLANNING ADVISOR: Followed by Judy historical site guide- has HPV- UTD With PAP .. Colonoscpy: Colonoscopy done in 2020 normal repeat 10 years HPI Comments History of Present Illness Details reviewed past medical history- yes reviewed surgical / hospitalization history- yes reviewed current medications- yes reviewed family history- yes home safety throw rugs? grab bars? raised toilet seat? working smoke detectors? activities of daily living difficulty bathing or showering? difficulty dressing? difficulty using the toilet? difficulty getting in and out of bed? difficulty walking? receives help from other person's with any of the above tasks? instrumental activities of daily living uses telephone - gets to place out of walking distance- go shopping for groceries- repairs own meals- does own minor home maintenance- does own laundry- does own housework- manages own money- currently takes medication- end of life planning discussed advanced directives- yes advanced directives on file? discussed wishes expressed in advanced directives. fall risk have you had any falls with injuries in the past year? have you had 2 or more falls in the past year? fall risk assessment: [facility] Medical History Hx of obesity Hx of sleep apnea History of atrial fibrillation Hx of hyperlipidemia History of fibromyalgia Hx of essential hypertension Surgical History Hx of eye surgery H/O colonoscopy History of endometrial ablation Hx of tubal ligation Hx of cholecystectomy Hx of knee surgery Family History Father Hx of lymphoma Mother Diabetes mellitus HTN (hypertension) Osteoporosis High cholesterol Dementia Brother Stroke Diabetes mellitus Heart valve problem Social History Housing: House Are you a primary animal caretaker supervisor to a significant other at home: Yes (MOM) Do you presently have visiting nurse or other home services: No Alcohol intake: never Patient Tobacco Use Status: Never used Tobacco e-Cigarette/Vaping Use: Never Used Second Hand Smoke Exposure: No service: No Current occupational status: employed Current occupation: [employer] Sexual orientation: Straight/Heterosexual Gender identity: Female Cognitive needs: No Hearing needs: No Vision needs: Yes Female Reproductive History Menstrual Age of Menarche: 12 Questionnaire Medicare Wellness Checkup What [age] 65-68 What gender do you identify with?: female During the past 4 weeks, how much have you been bothered by emotional problems such as feeling anxious, depressed, irritable, sad or downhearted, and blue?: slightly During the past 4 weeks, has your physical & emotional health limited your social activities with family, friends, neighbors, or groups?: not at all During the past 4 weeks, how much bodily pain have you generally had?: moderate pain During the past 4 weeks, was someone available to help you if you needed & wanted help?: yes, as much as I wanted Can you get to places out of walking distance without help? (For eg., can you travel alone on buses, taxis or drive your car?): Yes Can you go shopping for groceries or clothes without someone's help?: Yes Can you prepare your own meals?: Yes Can you do your housework without help?: Yes Because of any health problems, do you need the help of another person with your personal care needs such as eating, bathing, dressing or getting around the house?: No Can you handle your own money without help?: Yes During the past 4 weeks, how would you rate your health in general?: very good During the past 4 weeks how have things been going for you?: good & bad parts about equal Are you having difficulties driving your car?: no Do you always fasten your seat belt when you are in a car?: yes, usually During past 4 weeks, have you been bothered by the following: never: Sexual problems? and Problems using the telephone?, seldom: Falling or dizzy when standing up, Trouble eating well? and Teeth or denture problems? and always: Tiredness or fatigue? Have you fallen 2 or more times in the past year?: No Are you afraid of falling?: No Are you a smoker?: no During the past 4 weeks, how many drinks of wine, beer, or other alcoholic beverages did you have?: no alcohol at all Do you exercise for about 20 minutes 3 or more times a week?: yes, some of the time Have you been given information to help with the following?: yes: Hazards in your house that might hurt you? and yes: Keeping track of your medications? How often do you have trouble taking medicines the way you have been told to take them?: I always take medicine as prescribed How confident are you that you can control & manage most of your health problems?: very confident What is your race?: or origin or descent Mini Mental State Exam (MMSE) Orientation What is the (year) (season) (date) (day) (month)?: year Where are we (state) (county) (town or city) (hospital) (floor)?: town or city Attention & Calculation (CHOOSE ONE) Spell WORLD backwards (DLROW): 5 letters Score Score: 7 Activity of Daily Living Bathing - sponge bath, tub bath or shower: receives no assistance (gets in/out by self, if usual bathing means Dressing - getting clothes from closets & drawers, including inner/outer garments & fasteners.: gets clothes & gets completely dressed without help Toileting - going to the 'toilet room' for urine/bowel elimination & cleaning self/arranging clothes: goes to toilet room, cleans self, arranges clothes without help Transfer: moves in & out of bed and chair without help (may use support object) Continence: controls urination/bowel movements completely by self Feeding: feeds self without help Total Score: 0 Information obtained from: patient Using telephone: independent Traveling: independent Shopping: independent Preparing meals: independent Housework: independent Taking medicine: independent Managing money: independent PHQ-9 Over the last 2 weeks, how often have you been bothered by any of the following problems? 1. Little interest or pleasure in doing things: not at all 2. Feeling down, depressed, or hopeless: not at all 3. Trouble falling or staying asleep, or sleeping too much: not at all 4. Feeling tired or having little energy: more than half the days 5. Poor appetite or overeating: not at all 6. Feeling bad about yourself - or that you are a failure or have let yourself or your family down: not at all 7. Trouble concentrating on things, such as reading the newspaper or watching television: several days 8. Moving or speaking so slowly that other people could have noticed. Or the opposite - being so fidgety or restless that you have been moving around a lot more than usual: not at all 9. Thoughts that you would be better off or of hurting yourself in some way: not at all Total score: 3 Depression Screening Interpretation: Positive Depression Screening Follow-up: Existing condition Depression Screening Done: Yes 27835 - PHQ-9 Billing: Yes Source: Developed by Drs. Sagar Pratt, Monie Lee, Nabeel Simpson and colleagues, with an educational zbigniew from [employer]. Thrive Questionnaire Date Thrive assessed: 09/13/24 I am a: Patient What is your living situation today?: I have a steady place to live Within the past 12 months, did the food you bought not last and you didn't have the money to get more?: I choose not to answer this question Within the past 12 months, did you worry whether your food would run out before you got money to buy more?: I choose not to answer this question Do you have trouble paying for medicines?: Yes Do you have trouble getting transportation to medical appointments?: No Do you have trouble paying your heating and electricity bill?: Yes Do you have trouble taking care of your child, family member or friend?: No Do you have trouble with day-to-day activities such as bathing, preparing meals, shopping, managing finances, etc.?: No Are you currently unemployed and looking for a job?: No Are you interested in more education?: No Please select the resources that you would like help with: Utilities Currently or been in a relationship where the following occur: No concerns reported THRIVE Score: 1 ANIVAL-7 AMB Questionnaire ANIVAL-7 Date ANIVAL - 7 assessed: 08/03/23 Source: Developed by Drs. Sagar Pratt, Monie Lee, Nabeel Simpson and colleagues, with an educational zbigniew from [employer]. PHQ-2/PHQ-9 PHQ-2 Over the last 2 weeks, how often have you been bothered by any of the following problems? 1. Little interest or pleasure in doing things: not at all 2. Feeling down, depressed, or hopeless: not at all Total score: 0 If score is 3 or greater, continue 3. Trouble falling or staying asleep, or sleeping too much: not at all 4. Feeling tired or having little energy: more than half the days 5. Poor appetite or overeating: not at all 6. Feeling bad about yourself - or that you are a failure or have let yourself or your family down: not at all 7. Trouble concentrating on things, such as reading the newspaper or watching television: several days 8. Moving or speaking so slowly that other people could have noticed. Or the opposite - being so fidgety or restless that you have been moving around a lot more than usual: not at all 9. Thoughts that you would be better off or of hurting yourself in some way: not at all Total score: 3 0-4 None-Minimal, 5-9 Mild, 10-14 Moderate, 15-19 Moderately Severe, 20-27 Severe Source: Developed by Drs. Sagar Pratt, Monie Lee, Nabeel Simpson and colleagues, with an educational zbigniew from [employer]. Physical Exam Vital Signs: Last Vital Signs Pulse 79 09/13/24 10:00 BP 122/80 09/13/24 10:00 Pulse Ox 98 09/13/24 10:00 Oxygen Delivery Method Room Air 09/13/24 10:00 BMI result Body Mass Index 33.8 HEENT Other: hearing screening whisper test- passed Eyes Other: vision screening- 20 20 OS OD OU Other: urinary incontinence? no Neuro Other: balance Romberg- normal tandem walk test- able walk-in turned test- able rise from sit to stand- within 2 seconds Immunizations pneumoc 20-donell conj-dip cr(PF) 0.5 mL IM syringe Performing Provider: Ernesto Monreal PA-C Performing Location: [facility] Administered by: DANISHA Villegas on 09/13/24 10:50 Dose Route Admin Location Dispensed Lot Number Expiration Date [facility] Fretted String Instrument Repairer 0.5 mL IM Left Deltoid 0.5 mL [id number] 11/01/25 1647-4611-08 WYETH/PFIZER VIS Given Date VIS Provided VIS Publication Date 09/13/24 Single Vaccine 21 Eligibility Eligibility Date Funding Source Not [facility] Eligible 09/13/24 Private Assessment & Plan Assessment & Plan (1) Annual wellness visit: Code(s): Z00.00 - Encounter for general adult medical examination without abnormal findings Plan: As per HPI (2) Post-menopausal: Code(s): Z78.0 - Asymptomatic menopausal state Plan: Patient willing to get bone density screening (3) Bilateral presbyopia: Code(s): H52.4 - Presbyopia Plan: Reporting issues with her vision. She had dizzy solar sales representative and assessor for detailed eye exam. Orders: Orders XR DEXA axial skeleton Today Z78.0 - Asymptomatic menopausal state Pneumococcal 20 Immunization Today H52.4 - Presbyopia, Z23 - Encounter for immunization Comprehensive [employer] Panel Fast Today I10 - Essential (primary) hypertension Complete Blood Count no Diff Today I10 - Essential (primary) hypertension Lipid Panel Today E78.2 - Mixed hyperlipidemia Hemoglobin A1c Today R73.09 - Other abnormal glucose Microalbumin, Random (w Creat) Today I10 - Essential (primary) hypertension Referrals Ophthalmology Referral H52.4 - Presbyopia Medications: Refilled amlodipine 5 mg PO DAILY 90 tabs 2RF 90 days I10 - Essential (primary) hypertension Quality Reporting (2019) Depression/Bipolar (159/160/161/177) PHQ-9: Total score: 3 Coding Level of Care Code Medicare First (G0438) Diagnoses Annual wellness visit Z00.00 Post-menopausal Z78.0 Bilateral presbyopia H52.4 CPT Codes Advance Care Planning - Time spent: 1-15 minutes, not on file ([id number]) Additional Codes PHQ-9 - 17590 - PHQ-9 Billing: Yes ([id number]) Advance Care Planning Advance Care Planning discussion: Exists, not on file Date of discussion: 09/13/24 Who was present: Patient Forms completed: PERRY Time spent: 1-15 minutes, not on file Actual minutes spent: 4
--- OUTSIDE RECORDS SUMMARY | 2024-09-13 12:22 | XMS_ITS | Continuity of Care Document ---
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 Role Phone Sarah MACIEL, Elizabeth Ty Primary Care P krystin Encounter [facility] [place] Date(s): 07/27/24 - 08/26/[address] [address]- Attending Physician: Alise Almanzar Admitting Physician: Alise Almanzar Referring Physician: AdmtrAlise Encounter Type: Triage Allergies, Adverse Reactions, Alerts Substance Criticality Severity Reaction Reaction Severity Status lisinopril Bilateral leg cramps [...] # 90 tablet, 1 Refills, Maintenance, 01/20/24 1:17:00 PM EDT, Tablet, [id number], Partial fill upon patient request if the prescription is for a schedule II opioid drug., 148, cm, 01/20/24 13:15:00 EDT, Height, 75, kg, 02/26/23 23:16:00 EDT, Dry Weight Start Date: 01/20/24 Status: Ordered Quantity: 90.0 Unit: tablet Repeat number: 2 aspirin 81 mg oral enteric coated tablet By Mouth, Daily, 0 Refills, 02/07/12 5:44:56 PM EDT, EC Tablet Start Date: 02/07/12 Status: Ordered Repeat number: 1 Problem List Condition Confirmation Course Effective Dates Status Health St atus Informant History of atrial fibrillation 1 Confirmed Active Hypertension Confirmed Active Obese class I Confirmed Active Screening for breast cancer Confirmed Active Prediabetes Confirmed Active 1per previuos PCP note: Has a hsotry of Afib, chads score 1, continues on baby aspirin 81mg. She was previously on metoprolol though had side effect Procedures Procedure Date Related Diagnosis Body Site Status Endometrial ablation Comp leted Knee surgery Completed Tubal ligation Completed Social History Social History Type Response Smoking Status Never (less than 100 in lifetime); Interested in cessation: No; Patient wants NRT during admission No entered on: 01/20/24 Sex Sex Representation Female (finding) MG Breast Views * Event Display: MM Mammogram Authored Date: Patient Care team information Care Team Personnel Name: Sarah MACIEL, Elizabeth Ty Position: [facility] PCO Associate Professional Member Role: PCP Address: [address] [place] [address]. [address] [place], [place] [address] Telecom: Care Team Related Persons Name: KATHERINE MORLEY Name: PERRI WILLIAMSON Name: CHET LASSITER Insurance Providers Guarantor name: JUDSON Health Plan Information #: 1 Payer: [employer] [place] Member Number: NA Policy Number: NA Group Number: NA
--- OUTSIDE RECORDS SUMMARY | 2024-09-13 12:22 | XMS_ITS | Continuity of Care Document ---
Author Organization [facility] Adult Address [address] [place] [address]- Care Team Providers Care Inside Sales Engineer Name Role Phone Sarah MACIEL, Elizabeth Ty Primary Care P [id number] Date(s): 04/28/24 - 08/26/[address] [address]- Attending Physician: Sarah MACIEL, Elizabeth Ty Encounter Type: Pre Office Visit Allergies, Adverse Reactions, Alerts Substance Criticality Severity [...] Refills, Maintenance, 01/20/24 1:17:00 PM EDT, Tablet, [id number], Partial fill upon patient request if the [...] on: 01/20/24 Sex Sex Representation Female (finding) Patient Care team information Care Team Personnel Name: Sarah MACIEL, Elizabeth Ty Position: [facility] PCO Associate Professional Member Role: PCP Address: [address] [place] [address]. [address] [place] [address]- Telecom: Care Team Related Persons Name: KATHERINE MORLEY Name: PERRI WILLIAMSON Name: CHET LASSITER Insurance Providers Guarantor name: JUDSON Health Plan Information #: 1 Payer: [employer] Member Number: [id number] Policy Number: NA Group Number: NA Health Plan Information #: 2 Payer: [facility] Member Number: [id number] Policy Number: NA Group Number: NA
--- OUTSIDE RECORDS SUMMARY | 2024-09-13 12:22 | XMS_ITS | Patient Health Record ---
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 the day before the procedure for 1 day 09/04/2020 Active Immunizations Vaccine Route Administration Date Status Comme nts Influenza Unknown 08/30/2019 Refused Influenza Unknown 09/04/2020 Refused Social History Tobacco Use: Social History Observation Description Date Details (start date - stop date) Never Smoker NA - NA Tobacco Use/Smoking Question Answer Notes Patient is a nonsmoker Alcohol Screen Question Answer Notes Did you have a drink containing alcohol in the p ast year? No Points 0 Interpretation Negative Problems Problem Type SNOMED Code ICD Code Onset Dates Problem Status W/U Status Risk Notes Problem 880801480 Colon cancer screening (Z12.11) Active confirmed Problem 624223544 Encounter for other preprocedural examination (Z01.818) Active confirmed Problem 242625317 Long-term use of aspirin therapy (Z79.82) Active confirmed Problem 250223830 Long-term curren t use of high risk medication other than anticoagulant (Z79.899) Active confirmed Plan Of Treatment Future Test Test Name Order Date COLONOSCOPY 09/02/2019 COLONOSCOPY 09/04/2020 Insurance Providers Payer Name Payer Address Payer Phone Subscriber Number Group Number Insured Name Patient Relationship to Insured Coverage Start Date Coverage End Date [employer] [address] [place] [address] [phone] [id number] MERON GAGNON Self - patient is the insured Medical (General) History Medical History History ICD Code hypertension atrial fibrillation elevated cholesterol ALIZA/no CPAP use Surgical History Surgery Date(Month/Year) gall stones knee
== END 2024-09-13 10:52 | disposition home or self-care (01) ==
LOC: HO.HMCH 09:59
PROVIDERS: PCP Physician Assistant; Visit Provider Physician Assistant
DX: Z00.00 Encounter for general adult medical examination without abnormal findings (principal); Z78.0 Asymptomatic menopausal state; H52.4 Presbyopia; Z23 Encounter for immunization

== ENCOUNTER → 2024-09-13 09:57 | Outpatient (BNVA) | payer MEDICARE, OTHER, SELFPAY | PROVIDERS: PCP Physician Assistant; Visit Provider Physician Assistant | DX: Z00.00 Encounter for general adult medical examination without abnormal findings (principal); Z23 Encounter for immunization; Z78.0 Asymptomatic menopausal state; H52.4 Presbyopia | CPT/HCPCS: 90471; 90677; 96127 ==

== ENCOUNTER 2024-10-04 08:32 | Outpatient (REF) | payer MEDICARE, SELFPAY ==
--- NOTE | ~2024-10-04 | MM_ITS ---
EXAMINATION: DXA BONE DENSITY AXIAL HISTORY: Estrogen deficiency TECHNIQUE: [employer] Dual energy absorptiometry (DEXA) of the lumbar spine, total left hip, and femoral neck was performed. COMPARISON: Comparison is made with the prior examination dated 08/24/2011. FINDINGS: The bone mineral density of the lumbar spine is 1.157 with a T-score of -0.2, and a Z-score of 1.0. This is indicative of normal bone mineral density. This represents a BMD change of -8.2% compared to the prior exam. This is statistically significant. The bone mineral density of the left total hip is 1.040 with a T-score of 0.3, and a Z-score of 1.2. This is indicative of normal bone mineral density. This represents a BMD change of -5.9% compared to the prior exam. This is statistically significant. The bone mineral density of the left femoral neck is 0.854 with a T-score of -1.3, and a Z-score of -0.1. This is indicative of osteopenia. This represents a BMD change of -13.1% compared to the prior exam. FRACTURE RISK: The FRAX index suggests a ten year probability of major osteoporotic fracture of 5.7%, and of hip fracture 0.6%. MM/XR DEXA axial skeleton IMPRESSION: Based on bone mineral density, and according to World Health Organization (WHO) criteria, the diagnosis is consistent with osteopenia. All bone density values are in grams per centimeter squared (g/cm2). Statistically, 68% of repeat scans fall within 1 SD (+/- 0.010 g/cm2 for AP spine L1-L4) and 1 SD (+/- 0.012 g/cm2 for femur total) FRAX is a trademark of the [employer] [place] for Metabolic Bone Disease, a World Health Organization (WHO) Collaborating Center. Electronically signed by: Sagar Sotomayor MD 10/04/2024 09:29 AM EDT
--- OUTSIDE RECORDS SUMMARY | 2024-10-04 08:39 | XMS_ITS | Patient Health Record ---
Author Organization [facility] Address [address] [place] [address] Care Team Providers Care Solderer Dipper Name Role Phone Valentina (RETIRED) Barry JOYA [...] Problem Status W/U Status Risk Notes Problem 988423020 Colon cancer screening (Z12.11) Active confirmed Problem 523481200 Encounter for other preprocedural examination (Z01.818) Active confirmed Problem 146802984 Long-term use of aspirin therapy (Z79.82) Active confirmed Problem 999824422 Long-term curren t use of high risk medication other than anticoagulant (Z79.899) Active confirmed Plan Of Treatment Future Test Test Name Order Date COLONOSCOPY 09/02/2019 COLONOSCOPY 09/04/2020 Insurance Providers Payer Name Payer Address Payer Phone Subscriber Number Group Number Insured Name Patient Relationship to Insured Coverage Start Date Coverage End Date [employer] [address] [place] [address] [phone] [id number] MERON GAGNON Self - patient is the insured Medical (General) History Medical History History ICD Code hypertension atrial fibrillation elevated cholesterol ALIZA/no CPAP use Surgical History Surgery Date(Month/Year) gall stones knee
== END 2024-10-04 08:33 | disposition home or self-care (01) ==
LOC: HO.MAMMO 08:32
PROVIDERS: PCP Physician Assistant; Visit Provider Physician Assistant
DX: Z13.820 Encounter for screening for osteoporosis (principal); Z78.0 Asymptomatic menopausal state
CPT/HCPCS: 77080

== ENCOUNTER → 2024-10-04 08:45 | Outpatient (BNV) | payer MEDICARE, SELFPAY | PROVIDERS: PCP Physician Assistant; Visit Provider Radiology Diagnostic Radiology | DX: E28.39 Other primary ovarian failure (principal) | CPT/HCPCS: 77080 ==

== ENCOUNTER 2025-01-31 07:25 | Outpatient (REF) | payer MEDICARE, SELFPAY ==
[2025-01-31 07:54] LABS: Hematocrit 37.8 % (37.0-47.0); Hemoglobin 12.8 g/dl (12.0-16.0); Mean Corpuscular HGB Conc 33.9 g/dl (31.0-35.0); Mean Corpuscular Hemoglobin 30.1 pg (27.0-33.0); Mean Corpuscular Volume 88.9 fL (80.0-98.0); NRBC Abs Auto 0.000 X10*3/uL (0.0-0.012); NRBC Pct Auto 0.0 /100WBC (0.0-0.2); Platelet Count 242 X10*3/uL (160-400); Red Blood Count 4.25 X10*6/uL (4.20-5.50); White Blood Count 7.2 X10*3/uL (4.8-10.8)
[2025-01-31 08:02] LABS: Hemoglobin A1C 149.0032 umol/L; Total Hemoglobin (HGBA1C) 3387.4668 umol/L
[2025-01-31 08:29] LABS: Alanine Aminotransferase 27 U/L (0-31); Albumin Level 4.4 g/dL (3.5-5.0); Alkaline Phosphatase 138 U/L (39-117); Anion Gap 13 (12-20); Aspartate Amino Transferase 16 U/L (5-31); Blood Urea Nitrogen 15 mg/dL (9-16); Calcium 8.7 mg/dL (8.4-10.2); Carbon Dioxide 26 mmol/L (22-29); Chloride 108 mmol/L (96-108); Cholesterol 214 mg/dL (<200); Estimated Glomerular Filt Rate > 60; HDL Cholesterol 41 mg/dL (>40); Potassium 4.0 mmol/L (3.3-5.1); Sodium 143 mmol/L (135-145); Total Protein 7.2 g/dL (6.5-8.0); Triglycerides 156 mg/dL (<150)
[2025-01-31 08:39] LABS: Microalbum/Creatinine Ratio Ur 7.4 ug/mg cr (<30)
== END 2025-01-31 07:26 | disposition home or self-care (01) ==
LOC: HO.LAB 07:25
PROVIDERS: PCP Physician Assistant; Visit Provider Physician Assistant
DX: I10 Essential (primary) hypertension (principal); E78.2 Mixed hyperlipidemia; R73.09 Other abnormal glucose
CPT/HCPCS: 36415; 80053; 80061; 82043; 82570; 83036; 85027

== ENCOUNTER 2025-02-05 08:50 | Outpatient (AMB) | payer MEDICARE, SELFPAY ==
--- NOTE | 2025-02-05 08:53 | A.OFFPC_ITS ---
Vital Signs 02/05/25 08:54 02/05/25 09:19 Height 4 ft 11 in Weight 167 lb 2 oz BMI 33.8 BP 140/68 H 140/80 H Blood Pressure Location Lt brachial Position Sitting Pulse 75 Pulse Source Pulse Oximeter Temp 96.9 F Temp Source Temporal Artery Scan Pulse Oximetry (%) 98 Oxygen Delivery Method Room Air Intake Visit Reasons: f/u HTN/ HLD Intake Note: Patient is here to follow up on HTN, HLD. Rental Sales Representative Required: No Assistant Professor Sculpture: Not Required per policy Accompanied by: Self / Same As Patient Allergies lisinopril Adverse Reaction (Intermediate, Verified 02/05/25 09:25) leg cramps Medication List - Last Reconciled 02/05/25 by Ernesto Monreal PA-C amlodipine 5 mg PO DAILY 90 days aspirin 81 mg PO DAILY 90 days atorvastatin (Lipitor) 10 mg PO DAILY 90 days multivitamin 1 tab PO DAILY Tobacco use date assessed: 02/05/25 Fall risk assessment: No Falls in past year Last assessed Fall Risk: 02/05/25 Dental Screening Dental Screen Date: 02/05/25 Did you have a dental visit in the last 12 months?: No Did you have a dental problem in the last 6 months where you did not have access to dental care?: No Was dental information given to patient?: No HPI f/u HTN/ HLD HPI Details Patient is a 64-year-old female here today for follow-up visit.? Patient's past medical history significant for obesity, hypertension, impaired glucose metabolism, history paroxysmal AFIB, hyperlipidemia. Concerns--> She reports left knee and hip pain, for which x-rays have been ordered. A recent bone density test indicated osteopenia, which does not typically cause pain but may contribute to her discomfort. .. HTN:? Patient's blood pressure slightly elevated today in office. We did discuss perhaps adding on higher dose of amlodipine 10 mg though she would like to hold off and work on lifestyle modification. She continues on amlodipine 5 mg daily.? Otherwise denies any chest discomfort, vision issues.? She does report time to time having headaches. .. Borderline high cholesterol: Her cholesterol levels are borderline high, with a total cholesterol of 214 mg/dL and LDL cholesterol at 142 mg/dL. She is not currently on cholesterol medication but is considering starting it to manage her levels. .. Class 1 OBesity:? Unfortunately has gained some weight since last office visit attributes this to being under a bit more stress as lately. Patient has been working extensively on weight reduction as had been able to lose a few lb since last office visit.? Unfortunately BMI remains above 30.? .. AFib: Has a history AFib, chads score 1, continues on baby aspirin 81 mg. She was previously on metoprolol though had side effects .. Laboratory Tests 09/03/23 04/12/24 01/31/25 07:54 12:38 07:33 RBC 4.35 Creatinine 0.92 Random Glucose 120 H Fasting Glucose Hemoglobin A1c % 6.0 Cholesterol 207 H LDL Cholesterol, C alc 143 H Urine Microalbumin 20.0 01/31/25 07:37 RBC 4.25 Creatinine Random Glucose Fasting Glucose 115 H Hemoglobin A1c % 6.2 H Cholesterol 214 H LDL Cholesterol, C alc 142 H Urine Microalbumin PFSH Medical History Hx of obesity Hx of sleep apnea History of atrial fibrillation Hx of hyperlipidemia History of fibromyalgia Hx of essential hypertension Surgical History Hx of eye surgery H/O colonoscopy History of endometrial ablation Hx of tubal ligation Hx of cholecystectomy Hx of knee surgery Family History Father Hx of lymphoma Mother Diabetes mellitus HTN (hypertension) Osteoporosis High cholesterol Dementia Brother Stroke Diabetes mellitus Heart valve problem Social History Housing: House Are you a primary director critical care to a significant other at home: Yes (MOM) Do you presently have visiting nurse or other home services: No Alcohol intake: never Patient Tobacco Use Status: Never used Tobacco e-Cigarette/Vaping Use: Never Used Second Hand Smoke Exposure: No service: No Current occupational status: employed Current occupation: [employer] Sexual orientation: Straight/Heterosexual Gender identity: Female Cognitive needs: No Hearing needs: No Vision needs: Yes Female Reproductive History Menstrual Age of Menarche: 12 Questionnaire Thrive Questionnaire Date Thrive assessed: 09/13/24 I am a: Patient What is your living situation today?: I have a steady place to live Within the past 12 months, did the food you bought not last and you didn't have the money to get more?: I choose not to answer this question Within the past 12 months, did you worry whether your food would run out before you got money to buy more?: I choose not to answer this question Do you have trouble paying for medicines?: Yes Do you have trouble getting transportation to medical appointments?: No Do you have trouble paying your heating and electricity bill?: Yes Do you have trouble taking care of your child, family member or friend?: No Do you have trouble with day-to-day activities such as bathing, preparing meals, shopping, managing finances, etc.?: No Are you currently unemployed and looking for a job?: No Are you interested in more education?: No Please select the resources that you would like help with: Utilities Currently or been in a relationship where the following occur: No concerns reported THRIVE Score: 1 AUDIT C Alcohol Use Questionnaire (AUDIT-C) 1. How often do you have a drink containing alcohol?: Never 3. How often do you have six or more drinks on one occasion?: Never Total Score: 0 ANIVAL-7 AMB Questionnaire ANIVAL-7 Date ANIVAL - 7 assessed: 02/05/25 Feeling nervous, anxious, or on edge: 1 = Several days Not being able to stop or control worryin = Several days Worrying too much about different things: 1 = Several days Trouble relaxin = Several days Being so restless that it is hard to sit still: 0 = Not at all Becoming easily annoyed or irritable: 0 = Not at all Feeling afraid as if something awful might happen: 0 = Not at all Total ANIVAL-7 score (0-4 normal; 5-9 mild; 10-14 moderate; 15-21 severe): 4 Source: Developed by Drs. Sagar Pratt, Monie Lee, Nabeel Simpson and colleagues, with an educational zbigniew from [employer]. Review of Systems Const Denies headache(s) Eyes Denies loss of vision ENT Denies vertigo, Denies dizziness, Denies headache(s) and Denies sore throat Card Denies chest pain, Denies leg edema and Denies lightheadedness Resp Denies cough, Denies hemoptysis and Denies wheezing GI Denies abdominal pain, Denies melena, Denies constipation, Denies diarrhea and Denies vomiting Denies urinary frequency, Denies dysuria and Denies urinary urgency Musc Denies arthralgias, Denies joint swelling, Denies numbness and Denies tingling Neuro Denies Abnormal speech present, Denies behavioral changes, Denies vertigo, Denies dizziness, Denies headache(s), Denies loss of vision, Denies memory loss, Denies numbness and Denies tingling Psych Denies anxiety, Denies behavioral changes, Denies depression, Denies memory loss and Denies panic attacks Billy/Lymph Denies easy bleeding and Denies easy bruising Aller/Immun Denies wheezing Physical exam (Primary Care) Vital Signs: Last Vital Signs Temp 96.9 F 02/05/25 08:54 Pulse 75 02/05/25 08:54 BP 140/80 H 02/05/25 09:19 Pulse Ox 98 02/05/25 08:54 Oxygen Delivery Method Room Air 02/05/25 08:54 BMI result Body Mass Index 33.8 BMI Assessment/Plan discussion: High BMI High, discussed plan: lifestyle, weight reduction, dietary and physical activity Tobacco/Smoking Status: Tobacco use Status Tobacco use date assessed 02/05/25 02/05/25 08:56 Patient Tobacco Use Status Never used Tobacco 02/05/25 08:56 e-Cigarette/Vaping Use Never Used 02/05/25 08:56 Thrive Assessment: Date of Thrive Assessment Date Thrive assessed 09/13/24 02/05/25 08:56 Currently or been in a relationship where the following occur: No concerns reported Const General: healthy appearing, no acute distress, alert and awake Nutritional Appearance: well nourished Orientation/consciousness: oriented to person, oriented to place and oriented to time HENMT Ears: TM's normal bilaterally General nose exam: Normal nasal mucous membranes and turbinates present Eyes Conjunctivae: conjunctivae normal Sclerae: sclerae normal Pupils: Equal, round and reactive pupils present Neck Neck: Yes no lymphadenopathy and Yes no JVD Thyroid: Thyroid normal Carotids: no bruits Resp Effort & Inspection: normal respiratory effort and not tachypneic Auscultation: no crackles, no rales, no rhonchi and no wheezes Cardio Rate: regular rate Rhythm: regular rhythm Heart sounds: no murmurs and normal S1 and S2 GI Palpation (GI): Soft to palpation, nontender, no hepatomegaly and no splenomegaly Auscultation: normal bowel sounds Skin General skin exam: no rashes or lesions noted and dry skin Neuro General: oriented to person, oriented to place and oriented to time Cranial nerves: Yes Equal, round and reactive pupils present Speech: No Abnormal speech present Gait exam (Neuro): Normal gait present Motor exam (neuro): no tremor noted Extrem Right upper extremity: full ROM Left upper extremity: full ROM Right lower extremity: full ROM; no edema Left lower extremity: full ROM; no edema Psych Mental Status: mental status grossly normal Speech and movement: Normal speech and movement present Affect: normal affect Attitude: cooperative Thought process: Normal thought process present Coding Level of Care Code Est Pt Level 4 (78856) Diagnoses Primary hypertension I10 Hypertension type: primary hypertension Left hip pain M25.552 Mixed hyperlipidemia E78.2 Hyperlipidemia type: mixed hyperlipidemia Impaired glucose metabolism R73.09 Paroxysmal atrial fibrillation I48.0 Atrial fibrillation type: paroxysmal Obesity (BMI 30.0-34.9) E66.9 Assessment & Plan Assessment & Plan (1) HTN (hypertension): Code(s): I10 - Essential (primary) hypertension Category: Medical Qualifiers: Hypertension type: primary hypertension Qualified Code(s): I10 - Essential (primary) hypertension Plan: Blood pressure slightly elevated today in office. continues on amlodipine 5mg. will consider increasing to 10 mg. Goal blood pressure to be below 140/90 (2) Left hip pain: Code(s): M25.552 - Pain in left hip Category: Medical Plan: Patient having chronic left knee pain which has compensated her walk which is causing likely some left hip pain. Will get x-rays of left hip as well. (3) HLD (hyperlipidemia): Code(s): E78.5 - Hyperlipidemia, unspecified Category: Medical Qualifiers: Hyperlipidemia type: mixed hyperlipidemia Qualified Code(s): E78.2 - Mixed hyperlipidemia Plan: Patient has borderline high cholesterol and LDL that is a 145. She is willing to start statin therapy to reduce her overall CV risk Goal LDL to be 130. (4) Impaired glucose metabolism: Code(s): R73.09 - Other abnormal glucose Category: Medical Plan: Patient's most recent fasting blood sugar elevated A1c is 6.2. Patient has been working on lifestyle modifications to reduce carbohydrates in her diet. (5) Afib: Code(s): I48.91 - Unspecified atrial fibrillation Category: Medical Qualifiers: Atrial fibrillation type: paroxysmal Qualified Code(s): I48.0 - Paroxysmal atrial fibrillation Plan: Patient continues on has been therapy. Has not had any recent heart palpitations or syncopal episodes. (6) Obesity (BMI 30.0-34.9): Code(s): E66.9 - Obesity, unspecified Category: Medical Plan: Patient does understand her BMI is over 30 will work on being more physically active and adapting to better eating habits to reduce her weight Orders: Orders XR hip LT min 2V Today M25.552 - Pain in left hip Lipid Panel Today E78.2 - Mixed hyperlipidemia Comprehensive [place]. Panel Fast Today I10 - Essential (primary) hypertension Medications: New atorvastatin (Lipitor) 10 mg PO DAILY 90 tabs 1RF 90 days E78.2 - Mixed hyperlipidemia Patient Instructions: Goal: Blood pressure to be below 140/90, LDL to be below 130 Barriers: Adherence to physical activity and healthy eating habits
[2025-02-05 08:54] VITALS: BP 140/68; PULSE 75; TEMP 36.1; O2SAT 98; BMI 33.8
[2025-02-05 09:19] VITALS: BP 140/80
== END 2025-02-05 09:25 | disposition home or self-care (01) ==
LOC: HO.HMCH 08:51
PROVIDERS: PCP Physician Assistant; Visit Provider Physician Assistant
DX: I10 Essential (primary) hypertension (principal); M25.552 Pain in left hip; E78.2 Mixed hyperlipidemia; I48.0 Paroxysmal atrial fibrillation; R73.09 Other abnormal glucose; E66.9 Obesity, unspecified

== ENCOUNTER → 2025-02-05 08:50 | Outpatient (BNVA) | payer MEDICARE, SELFPAY | PROVIDERS: PCP Physician Assistant; Visit Provider Physician Assistant | DX: I10 Essential (primary) hypertension (principal); M25.552 Pain in left hip; E78.2 Mixed hyperlipidemia; R73.09 Other abnormal glucose; I48.0 Paroxysmal atrial fibrillation; E66.9 Obesity, unspecified | CPT/HCPCS: 99212 ==

== ENCOUNTER 2025-02-18 09:02 | Outpatient (REF) | payer MEDICARE, SELFPAY ==
--- NOTE | ~2025-02-18 | XR_ITS ---
EXAMINATION: XR HIP, LEFT CLINICAL INFORMATION: M25.552 - Pain in left hip COMPARISON: Correlated to CT abdomen pelvis dated July 31, 2018. TECHNIQUE: AP and oblique views of the left hip. FINDINGS: No acute cortical disruption or malalignment. There is preservation of the joint space. Mild sclerosis in the left sacroiliac joint. Mild degenerative changes in the symphysis pubis. No lytic or blastic lesions. XR/XR hip LT min 2V IMPRESSION: No acute fracture or dislocation, left hip. Sacroiliitis, left-sided. Mild degenerative changes, symphysis pubis. Electronically signed by: Antonio Harris MD 02/18/2025 09:58 AM EDT
--- NOTE | ~2025-02-18 | XR_ITS ---
EXAMINATION: XR KNEE, LEFT CLINICAL INFORMATION: M25.562 - Pain in left knee COMPARISON: January 12, 2020 TECHNIQUE: AP, oblique lateral and swimmer's projection of the left knee. FINDINGS: No acute cortical disruption or malalignment. Mild asymmetric joint space narrowing involving medial and to a lesser extent lateral compartment. Small trace suprapatellar bursa joint effusion. No lytic or blastic lesions. XR/XR knee LT 4V IMPRESSION: Tricompartmental osteoarthrosis/osteoarthritis, mild. Small suprapatellar bursa joint effusion. Electronically signed by: Antonio Harris MD 02/18/2025 09:56 AM EDT
== END 2025-02-18 09:03 | disposition home or self-care (01) ==
LOC: HO.XRAY 09:02
PROVIDERS: PCP Physician Assistant; Visit Provider Physician Assistant
DX: M25.562 Pain in left knee (principal); M25.552 Pain in left hip
CPT/HCPCS: 73502; 73564

== ENCOUNTER → 2025-02-18 09:08 | Outpatient (BNV) | payer MEDICARE, SELFPAY | PROVIDERS: PCP Physician Assistant; Visit Provider Radiology Diagnostic Radiology | DX: M17.12 Unilateral primary osteoarthritis, left knee (principal); M46.1 Sacroiliitis, not elsewhere classified | CPT/HCPCS: 73502; 73564 ==

== ENCOUNTER 2025-05-25 07:24 | Outpatient (REF) | payer MEDICARE, SELFPAY ==
[2025-05-25 10:07] LABS: Alanine Aminotransferase 19 U/L (0-31); Albumin Level 4.6 g/dL (3.5-5.0); Alkaline Phosphatase 138 U/L (39-117); Anion Gap 13 (12-20); Aspartate Amino Transferase 16 U/L (5-31); Blood Urea Nitrogen 12 mg/dL (9-16); Calcium 8.9 mg/dL (8.4-10.2); Carbon Dioxide 27 mmol/L (22-29); Chloride 107 mmol/L (96-108); Cholesterol 226 mg/dL (<200); Estimated Glomerular Filt Rate > 60; HDL Cholesterol 41 mg/dL (>40); Potassium 3.9 mmol/L (3.3-5.1); Sodium 143 mmol/L (135-145); Total Protein 7.5 g/dL (6.5-8.0); Triglycerides 123 mg/dL (<150)
== END 2025-05-25 07:25 | disposition home or self-care (01) ==
LOC: HO.LAB 07:24
PROVIDERS: PCP Physician Assistant; Visit Provider Physician Assistant
DX: I10 Essential (primary) hypertension (principal); E78.2 Mixed hyperlipidemia
CPT/HCPCS: 36415; 80053; 80061

== ENCOUNTER 2025-05-27 08:30 | Outpatient (AMB) | payer MEDICARE, SELFPAY ==
[2025-05-27 09:18] VITALS: BP 150/76; PULSE 82; TEMP 36.4; O2SAT 98; BMI 33.5
--- NOTE | 2025-05-27 09:18 | MHC.PC.OV ---
Vital Signs 05/27/25 09:18 05/27/25 09:37 Height 4 ft 11 in Weight 166 lb 2 oz BMI 33.5 BP 150/76 H 150/82 H Blood Pressure Location Lt brachial Position Sitting Pulse 82 Pulse Source Pulse Oximeter Temp 97.6 F Temp Source Temporal Artery Scan Pulse Oximetry (%) 98 Oxygen Delivery Method Room Air Intake Visit Reasons: f/u HTN/ HLD Intake Note: Patient is here to follow up on HTN, HLD. Metrology Manager Required: No Nurse Practitioner Physicians Assistant: Not Required per policy Accompanied by: Self / Same As Patient Allergies lisinopril Adverse Reaction (Intermediate, Verified 05/27/25 09:27) leg cramps Medication List - Last Reconciled 05/27/25 by Ernesto Monreal PA-C amlodipine 5 mg PO DAILY 90 days aspirin 81 mg PO DAILY 90 days atorvastatin (Lipitor) 10 mg PO DAILY 90 days multivitamin 1 tab PO DAILY Tobacco use date assessed: 02/05/25 Fall risk assessment: No Falls in past year Last assessed Fall Risk: 02/05/25 Dental Screening Dental Screen Date: 02/05/25 Did you have a dental visit in the last 12 months?: No Did you have a dental problem in the last 6 months where you did not have access to dental care?: No Was dental information given to patient?: No HPI f/u HTN/ HLD HPI Details Patient is a 64-year-old female here today for follow-up visit.? Patient's past medical history significant for obesity, hypertension, impaired glucose metabolism, history paroxysmal AFIB, hyperlipidemia. .. HTN:? Patient's blood pressure slightly elevated today in office. She reports being under lot of stress as of late due to personal issues at home and her job. She is willing to increase her amlodipine dose to 10 mg for better blood pressure control. She continues on amlodipine 5 mg daily.? Otherwise denies any chest discomfort, vision issues.? She does report time to time having headaches. .. Hyperlipidemia: . Triglycerides have decreased to 123 mg/dL from 156 mg/dL, but total cholesterol and LDL levels have increased. The patient reports not taking the prescribed atorvastatin (Lipitor) due to not getting it from the pharmacy. PLAN: Will restart atorvastatin 10 mg .. Impaired glucose metabolism: Most recent fasting blood sugar 119 and A1c in prediabetic range at 6.2. She reports working on low carbohydrate diet .. Class 1 Obesity:? Has been able to lose a small amount of weight since last office visit. She reports she has been walking and changing her diet for the better. Patient has been working extensively on weight reduction as had been able to lose a few lb since last office visit.? Unfortunately BMI remains above 30.? .. AFib: Has a history AFib, chads vasc score 2, continues on baby aspirin 81 mg. She was previously on metoprolol though had side effects .. Laboratory Tests 09/03/23 04/12/24 01/31/25 07:54 12:38 07:33 RBC 4.35 Creatinine 0.92 Random Glucose 120 H Fasting Glucose Hemoglobin A1c % 6.0 Cholesterol 207 H LDL Cholesterol, C alc 143 H Urine Microalbumin 20.0 01/31/25 07:37 RBC 4.25 Creatinine Random Glucose Fasting Glucose 115 H Hemoglobin A1c % 6.2 H Cholesterol 214 H LDL Cholesterol, C alc 142 H Urine Microalbumin Laboratory Tests 01/31/25 05/25/25 07:37 07:52 RBC 4.25 Fasting Glucose 115 H 119 H Hemoglobin A1c % 6.2 H Cholesterol 226 H LDL Cholesterol, C alc 142 H 161 H PFSH Medical History Hx of obesity Hx of sleep apnea History of atrial fibrillation Hx of hyperlipidemia History of fibromyalgia Hx of essential hypertension Surgical History Hx of eye surgery H/O colonoscopy History of endometrial ablation Hx of tubal ligation Hx of cholecystectomy Hx of knee surgery Family History Father Hx of lymphoma Mother Diabetes mellitus HTN (hypertension) Osteoporosis High cholesterol Dementia Brother Stroke Diabetes mellitus Heart valve problem Social History Housing: House Are you a primary health care attorney to a significant other at home: Yes (MOM) Do you presently have visiting nurse or other home services: No Alcohol intake: never Patient Tobacco Use Status: Never used Tobacco e-Cigarette/Vaping Use: Never Used Second Hand Smoke Exposure: No service: No Current occupational status: employed Current occupation: [employer] Sexual orientation: Straight/Heterosexual Gender identity: Female Cognitive needs: No Hearing needs: No Vision needs: Yes Female Reproductive History Menstrual Age of Menarche: 12 Questionnaire PHQ-9 Over the last 2 weeks, how often have you been bothered by any of the following problems? 1. Little interest or pleasure in doing things: not at all 2. Feeling down, depressed, or hopeless: not at all 3. Trouble falling or staying asleep, or sleeping too much: not at all 4. Feeling tired or having little energy: more than half the days 5. Poor appetite or overeating: not at all 6. Feeling bad about yourself - or that you are a failure or have let yourself or your family down: not at all 7. Trouble concentrating on things, such as reading the newspaper or watching television: several days 8. Moving or speaking so slowly that other people could have noticed. Or the opposite - being so fidgety or restless that you have been moving around a lot more than usual: not at all 9. Thoughts that you would be better off or of hurting yourself in some way: not at all Total score: 3 Depression Screening Interpretation: Positive Depression Screening Follow-up: Existing condition Depression Screening Done: Yes 29698 - PHQ-9 Billing: Yes Source: Developed by Drs. aSgar Pratt, Monie Lee, Nabeel Simpson and colleagues, with an educational zbigniew from [employer]. Thrive Questionnaire Date Thrive assessed: 09/13/24 I am a: Patient What is your living situation today?: I have a steady place to live Within the past 12 months, did the food you bought not last and you didn't have the money to get more?: I choose not to answer this question Within the past 12 months, did you worry whether your food would run out before you got money to buy more?: I choose not to answer this question Do you have trouble paying for medicines?: Yes Do you have trouble getting transportation to medical appointments?: No Do you have trouble paying your heating and electricity bill?: Yes Do you have trouble taking care of your child, family member or friend?: No Do you have trouble with day-to-day activities such as bathing, preparing meals, shopping, managing finances, etc.?: No Are you currently unemployed and looking for a job?: No Are you interested in more education?: No Please select the resources that you would like help with: Utilities Currently or been in a relationship where the following occur: No concerns reported THRIVE Score: 1 AUDIT C Alcohol Use Questionnaire (AUDIT-C) 1. How often do you have a drink containing alcohol?: Never 3. How often do you have six or more drinks on one occasion?: Never Total Score: 0 ANIVAL-7 AMB Questionnaire ANIVAL-7 Date ANIVAL - 7 assessed: 02/05/25 Feeling nervous, anxious, or on edge: 1 = Several days Not being able to stop or control worryin = Several days Worrying too much about different things: 1 = Several days Trouble relaxin = Several days Being so restless that it is hard to sit still: 0 = Not at all Becoming easily annoyed or irritable: 0 = Not at all Feeling afraid as if something awful might happen: 0 = Not at all Total ANIVAL-7 score (0-4 normal; 5-9 mild; 10-14 moderate; 15-21 severe): 4 Source: Developed by Drs. Sagar Pratt, Monie Lee, Nabeel Simpson and colleagues, with an educational zbigniew from [employer]. Review of Systems Const Denies headache(s) Eyes Denies loss of vision ENT Denies vertigo, Denies dizziness, Denies headache(s) and Denies sore throat Card Denies chest pain, Denies leg edema and Denies lightheadedness Resp Denies cough, Denies hemoptysis and Denies wheezing GI Denies abdominal pain, Denies melena, Denies constipation, Denies diarrhea and Denies vomiting Denies urinary frequency, Denies dysuria and Denies urinary urgency Musc Denies arthralgias, Denies joint swelling, Denies numbness and Denies tingling Neuro Denies Abnormal speech present, Denies behavioral changes, Denies vertigo, Denies dizziness, Denies headache(s), Denies loss of vision, Denies memory loss, Denies numbness and Denies tingling Psych Denies anxiety, Denies behavioral changes, Denies depression, Denies memory loss and Denies panic attacks Billy/Lymph Denies easy bleeding and Denies easy bruising Aller/Immun Denies wheezing Physical exam (Primary Care) Vital Signs: Last Vital Signs Temp 97.6 F 05/27/25 09:18 Pulse 82 05/27/25 09:18 BP 150/76 H 05/27/25 09:18 Pulse Ox 98 05/27/25 09:18 Oxygen Delivery Method Room Air 05/27/25 09:18 BMI result Body Mass Index 33.5 BMI Assessment/Plan discussion: High BMI High, discussed plan: lifestyle, weight reduction, dietary and physical activity Tobacco/Smoking Status: Tobacco use Status Tobacco use date assessed 02/05/25 05/27/25 09:25 Patient Tobacco Use Status Never used Tobacco 05/27/25 09:25 e-Cigarette/Vaping Use Never Used 05/27/25 09:25 PHQ-9: PHQ-9 Score PHQ-9: Total score 3 05/27/25 09:25 Depression Screening Interpretation: Positive Depression Screening Follow-up: Existing condition Thrive Assessment: Date of Thrive Assessment Date Thrive assessed 09/13/24 05/27/25 09:25 Currently or been in a relationship where the following occur: No concerns reported Const General: healthy appearing, no acute distress, alert and awake Nutritional Appearance: well nourished Orientation/consciousness: oriented to person, oriented to place and oriented to time HENMT Ears: TM's normal bilaterally General nose exam: Normal nasal mucous membranes and turbinates present Eyes Conjunctivae: conjunctivae normal Sclerae: sclerae normal Pupils: Equal, round and reactive pupils present Neck Neck: Yes no lymphadenopathy and Yes no JVD Thyroid: Thyroid normal Carotids: no bruits Resp Effort & Inspection: normal respiratory effort and not tachypneic Auscultation: no crackles, no rales, no rhonchi and no wheezes Cardio Rate: regular rate Rhythm: regular rhythm Heart sounds: no murmurs and normal S1 and S2 GI Palpation (GI): Soft to palpation, nontender, no hepatomegaly and no splenomegaly Auscultation: normal bowel sounds Skin General skin exam: no rashes or lesions noted and dry skin Neuro General: oriented to person, oriented to place and oriented to time Cranial nerves: Yes Equal, round and reactive pupils present Speech: No Abnormal speech present Gait exam (Neuro): Normal gait present Motor exam (neuro): no tremor noted Extrem Right upper extremity: full ROM Left upper extremity: full ROM Right lower extremity: full ROM; no edema Left lower extremity: full ROM; no edema Psych Mental Status: mental status grossly normal Speech and movement: Normal speech and movement present Affect: normal affect Attitude: cooperative Thought process: Normal thought process present Coding Level of Care Code Est Pt Level 4 (86978) Diagnoses Primary hypertension I10 Hypertension type: primary hypertension Mixed hyperlipidemia E78.2 Hyperlipidemia type: mixed hyperlipidemia Impaired glucose metabolism R73.09 Paroxysmal atrial fibrillation I48.0 Atrial fibrillation type: paroxysmal Additional Codes PHQ-9 - 23368 - PHQ-9 Billing: Yes ([id number]) Assessment & Plan Assessment & Plan (1) HTN (hypertension): Code(s): I10 - Essential (primary) hypertension Category: Medical Qualifiers: Hypertension type: primary hypertension Qualified Code(s): I10 - Essential (primary) hypertension Plan: Blood pressure slightly elevated today in office. continues on amlodipine 5mg. Will increase her amlodipine dose to 10 mg for better blood pressure control Goal blood pressure to be below 140/90 (2) HLD (hyperlipidemia): Code(s): E78.5 - Hyperlipidemia, unspecified Category: Medical Qualifiers: Hyperlipidemia type: mixed hyperlipidemia Qualified Code(s): E78.2 - Mixed hyperlipidemia Plan: Patient has borderline high cholesterol and LDL that is a 145. She has not been taking atorvastatin 10 mg as she has not from the pharmacy which can explain in her total cholesterol and LDL. Will restart atorvastatin 10 mg Goal LDL to be 130. (3) Impaired glucose metabolism: Code(s): R73.09 - Other abnormal glucose Category: Medical Plan: Patient's most recent fasting blood sugar elevated A1c is 6.2. Fasting blood sugar 119. Patient has been working on lifestyle modifications to reduce carbohydrates in her diet. (4) Afib: Code(s): I48.91 - Unspecified atrial fibrillation Category: Medical Qualifiers: Atrial fibrillation type: paroxysmal Qualified Code(s): I48.0 - Paroxysmal atrial fibrillation Plan: Patient continues on has been therapy. CHADS vas score- 3 score (female, hypertension and age) . She continues with daily aspirin. We did discuss her CHADS-VASc score being elevated at 2 and likely needs anticoagulation though she declines at this time. Has not had any recent heart palpitations or syncopal episodes. Orders: Orders Hemoglobin A1c Today R73.09 - Other abnormal glucose Lipid Panel Today E78.2 - Mixed hyperlipidemia Complete Blood Count no Diff Today E78.2 - Mixed hyperlipidemia Microalbumin, Random (w Creat) Today I10 - Essential (primary) hypertension Comprehensive [place]. Panel Fast Today R73.09 - Other abnormal glucose Medications: New amlodipine disregard 5mg dose - starting 10 mg 10 mg PO DAILY 90 tabs 2RF 90 days I10 - Essential (primary) hypertension Refilled atorvastatin (Lipitor) 10 mg PO DAILY 90 tabs 1RF 90 days E78.2 - Mixed hyperlipidemia
[2025-05-27 09:37] VITALS: BP 150/82
== END 2025-05-27 09:54 | disposition home or self-care (01) ==
LOC: HO.HMCH 08:31
PROVIDERS: PCP Physician Assistant; Visit Provider Physician Assistant
DX: I10 Essential (primary) hypertension (principal); E78.2 Mixed hyperlipidemia; R73.09 Other abnormal glucose; I48.0 Paroxysmal atrial fibrillation

== ENCOUNTER → 2025-05-27 08:30 | Outpatient (BNVA) | payer MEDICARE, SELFPAY | PROVIDERS: PCP Physician Assistant; Visit Provider Physician Assistant | DX: I10 Essential (primary) hypertension (principal); E78.2 Mixed hyperlipidemia; R73.09 Other abnormal glucose; I48.0 Paroxysmal atrial fibrillation | CPT/HCPCS: 96127; 99212 ==